=== PATIENT | female | born 1950 | race Caucasian/White ===

== ENCOUNTER 2019-05-03 00:33 | Emergency (ER) | payer MEDICARE, MEDICAID ==
[~2019-05-03] VITALS: Ht 160 cm; Wt 68.0 kg
--- NOTE | 2019-05-03 00:52 | ED Fall/Injury ---
General Stated Complaint: FALL Source: patient (PT WITH DEMENTIA AND IS UNABLE TO GIVE RELIABLE INFORMATION), family ( AND SON ARRIVE LATER--BOTH ARE VERY POOR HISTORIANS WELL. ), EMS, caregiver History of Present Illness Date Seen by Provider: May 03, 2019 Time Seen by Provider: 00:33 Initial Comments PT AR[facility]IVES VIA [facility], WITH CERVICAL COLLAR IN PLACE PT HAD UNWITNESSED FALL AT THE FACILITY, BUT THE FALL WAS REPORTEDLY HEARD BY STAFF MEMBER. PT HAS HEMATOMA TO LEFT FOREHEAD, AND PT'S ONLY COMPLAINT ON ARRIVAL TO ER IS PAIN TO THIS AREA PT IS AT NORMAL BASELINE, PER MIDDLE OR INTER[employer] S[employer] PRINCIPAL. PT HAS ONLY BEEN AT THEIR FACILITY SINCE 04/30/19, AND HAD BEEN AT HOME PRIOR TO THAT. PT WITH DEMENTIA PT IS ON 81 MG ASPIRIN DAILY EMS HAD REPORTED THAT PT'S ONLY COMPLAINT WAS KNEE PAIN, PT DOES NOT MENTION THAT HERE. PT THINKS SHE IS IN [place], [place], AND IS DISORIENTED TO TIME, PLACE AND SITUATION. ORIENTED TO SELF, AND IS ABLE TO GIVE HER BIRTHDATE PT IS INCONSISTENT ON ANSWERING YES/NO QUESTIONS ABOUT WHERE SHE HURTS, OR IF SHE HAS PAIN ON PALPATION TO VARIOUS AREAS OF BODY. PT IS COMPLETELY DISORIENTED TO SITUATION AT ONE POINT, PT DOES STATES THAT SHE THINKS SHE WAS GETTING UP TO GO TO THE BATHROOM, BUT PT CANNOT RELATE THAT SHE FELL. PCP: DR. JEFF Allergies and Home Medications Patient Home Medication List Home Medication List Reviewed: Yes Review of Systems Review of Systems Constitutional: other (PT IS NOT A RELIABLE HISTORIAN. ONLY C/O PAIN TO LEFT FOREHEAD AREA) Past [id number] Hx Past Medical History Surgeries: Yes (HAS MULTIPLE OLD CHEST AND ABDOMINAL SURGICAL SCARS-PT UNABLE TO STATE WHAT) Abdominal (SPLENECTOMY), Breast (BILATERAL BREAST LUMPECTOMIES), Neurological (T-SPNE RESCTION FOR TUMOR), Orthopedic (T-SPINE RESECTION FOR TUMOR) Cardiac: Yes Hypertension Neurological: Yes Dementia Gastrointestinal: Yes Chronic Constipation Musculoskeletal: Yes (CHRONIC RIGHT SHOULDER PAIN/ARTHRITIS; T-SPJNE RESECTION FOR TUMOR) Arthritis Cancer: Yes Breast, Lymphoma Did You Recieve Any Treatments: Yes (BREAST CANCER-S/P LUMPECTOMY-UNKNOWN IF SHE HAD CHEMO OR RADIATION; LYMPHOMA-S/P CHEMO + RADIATION + SURGERY) What Type of Treatment Did You: Chemotherapy, Radiation, Surgical Intervention Family Medical History ON REVIEW OF OLD RADIOLOGICAL STUDIES, STUDY INFORMATION INCLUDED: HX OF LYMPHOMA, [place] WITH CHEMO AND RADIATION HAD SEVERAL TUMORS REMOVED --IN CHEST--NEAR HEART, SPINAL CORD TUMOR--HAS HAD RESECTION OF MULTIPLE VERTEBRA OF T-SPINE HAS HAD SPLENECTOMY S/P BREAST LUMPECTOMY FOR CANCER PT HAS HISTORY OF BILATERAL LEG WEAKNESS Physical Exam Vital Signs Vital Signs - First Documented 05/03/19 05/03/19 00:33 03:05 Temp 36.7 Pulse 65 Resp 18 B/P (MAP) 166/99 (121) Pulse Ox 94 O2 Delivery Room Air Capillary Refill : Height, Weight, BMI Height: '" Weight: lbs. oz. kg; BMI Method: General Appearance: no apparent distress, cachetic, thin, other (CERVICAL COLLAR IN PLACE; TREMULOUS) HEENT: other (PUPILS PINPOINT AND EQUAL. EOMI. HAS MODERATE SIZED LEFT FOREHEAD HEMATOMA, WITH TENDERNESS TO PALPATION. NO BONY DEFORMITY. NO S UBCONJUNCTIVAL HEMORRHAGE OR EVIDENCE OF OCULAR INJURY.) Neck: other (IN CERVICAL COLLAR) Cardiovascular: normal peripheral pulses, regular rate, rhythm, no murmur, other (CHEST DEFORMITY C/W PECTUS CARINATUM) Respiratory: chest non-tender, normal breath sounds, no respiratory distress, no accessory muscle use, other (PECTUS CARINATUM) Peripheral Pulses: 1+ Dorsalis Pedis (R), 1+ Left Dors-Pedis (L), 1+ Radial Pulses (R), 1+ Radial Pulses (L) Gastrointestinal: non tender, soft Back: no CVA tenderness Extremities: normal capillary refill, other (TENDERNESS TO LEFT UPPER ARM. NO EXTERNAL EVIDENCE OF TRAUMA. HAS SLIGHT ABRASION TO LEFT KNEE. BUT NO APPARENT TENDERNESS. HAS FULL ROM OF KNEES. ) Neurologic/Psychiatric: personal vehicle advisor II-XII nml as tested, no motor/sensory deficits (GROSS MOTOR/SENSORY INTACT, BUT PT HAS DIFFICULTY FOLLOWING SIMPLE COMMANDS, SPEECH IS CLEAR. ), alert Skin: normal color, warm/dry, other ( ABOVE) Progress/Results/Core Measures Results/Orders My Orders Orders - CHUCKY CANO DO Ct Head/Face/Cervical Wo (05/03/19 00:45) Chest 1 View, Ap/Pa Only (05/03/19 00:45) Humerus, Left, 2 Views (05/03/19 00:45) Pelvis (05/03/19 00:45) Knee, 3 Views, Bilateral (05/03/19 00:45) Vital Signs/I&O 05/03/19 05/03/19 00:33 03:05 Temp 36.7 36.8 Pulse 65 61 Resp 18 18 B/P (MAP) 166/99 (121) 119/74 Pulse Ox 94 O2 Delivery Room Air Room Air Progress Progress Note : Progress Note DETERIORATION IN PT'S CONDITION DURING ER STAY. PT IS AT NORMAL BASELINE WITH MENTATION Diagnostic Imaging Comments CT HEAD/MAXILLOFACIALS/CERVICAL SPINE--NO ACUTE PROCESS, CHRONIC SMALL VESSEL ISCHEMIC CHANGES, POST SURGICAL CHANGES OF VISUALIZED T2-T5 SPINE--REMAINDER OF T-SPINE IS NOT VISUALIZED. DEGENERATIVE CHANGES OF CERVICAL SPINE. PER [facility] VIA [facility] AT 0236 CXR--NO ACUTE PROCESS, PENDING RADIOLOGIST REVIEW PELVIS XRAY--NO ACUTE PROCESS, PENDING RADIOLOGIST REVIEW BILATERAL KNEE XRAYS--NO ACUTE PROCESS, PENDING RADIOLOGIST REVIEW Reviewed: Reviewed by Me Departure Impression Primary Impression: Unwitnessed fall Additional Impressions: Forehead contusion Minor head injury without loss of consciousness CERVICAL SPINE STRAIN Knee contusion Contusion of left upper arm Dementia Chronic neck and back pain Disposition: 03 XFER SNF Condition: Stable Departure-Patient Inst. Referrals: CECILIA JEFF MD (PCP/Family) Primary Care Physician Patient Instructions: Minor Head Injury (DC), Black Eye, Chronic Neck Pain (DC), Contusion (DC) Add. Discharge Instructions: ICE TO SORE AREAS AT 20 MINUTE INTERVALS TYLENOL NEEDED FOR PAIN CONTINUE YOUR REGULAR MEDICATIONS PRESCRIBED FOLLOW UP WITH DR. JEFF IF SYMPTOMS NOT IMPROVED, RETURN TO ER IF SYMPTOMS WORSEN CHUCKY CANO DO May 03, 2019 00:52
--- NOTE | 2019-05-03 02:38 | NUR ---
c-collar removed by dr mckoy.
[2019-05-03 03:05] VITALS: BP 119/74
--- NOTE | 2019-05-03 06:26 | Diagnostic Imaging Report ---
INDICATION: Pain and soreness. FINDINGS: The heart size is normal. There is mild venous congestion. There is no pleural effusion or pneumothorax. There has been a previous median sternotomy and coronary artery bypass graft. IMPRESSION: Mild central pulmonary venous congestion, otherwise unremarkable. Dictated by: Dictated on workstation # [id number]
--- NOTE | 2019-05-03 06:39 | Diagnostic Imaging Report ---
INDICATION: Fall. Two views were obtained. FINDINGS: There are degenerative changes in the shoulder. There is no fracture or dislocation. Soft tissues are unremarkable. IMPRESSION: Degenerative changes, otherwise unremarkable. Dictated by: Dictated on workstation # [id number]
--- NOTE | 2019-05-03 06:41 | Diagnostic Imaging Report ---
INDICATION: Fall. FINDINGS: The bony pelvis is intact. Both proximal femurs are intact. There is no fracture or dislocation. Soft tissues are unremarkable. IMPRESSION: No acute fracture or dislocation Dictated by: Dictated on workstation # [id number]
--- NOTE | 2019-05-03 06:47 | Diagnostic Imaging Report ---
INDICATION: Pain and swelling. Six views were obtained. FINDINGS: There are mild degenerative changes in the knees bilaterally. There is no fracture or dislocation. Soft tissues are unremarkable. IMPRESSION: Mild degenerative changes bilaterally, however, no acute fracture or dislocation. Dictated by: Dictated on workstation # [id number]
--- NOTE | 2019-05-03 07:41 | Diagnostic Imaging Report ---
PROCEDURE: CT head, face, and cervical spine without contrast. TECHNIQUE: Multiple contiguous axial images were obtained through the head, neck, and facial bones without the use of intravenous contrast. Sagittal and coronal reformations through the cervical spine and facial bones were also performed. Auto Exposure Controls were utilized during the CT exam to meet ALARA standards for radiation dose reduction. INDICATION: Pain after fall. FINDINGS: There is prominence of the ventricles and sulci. There is some chronic microvascular ischemic disease. There is no hydrocephalus. There is no midline shift. There is no mass, hemorrhage or extra-axial fluid collection. Calvarium is intact. Sinuses and mastoid air cells are clear. The zygomatic arches are intact. The nasal bones are intact. Mandibular alignment is normal. There are no displaced facial fractures. The alignment of the cervical spine is grossly normal. The vertebral body heights are well-maintained. There is no fracture or traumatic subluxation. The odontoid is intact and the lateral masses are well aligned. The prevertebral soft tissues are within normal limits. The lung apices are clear. IMPRESSION: No acute intracranial abnormality. No evidence of facial fracture. Unremarkable CT cervical spine apart from mild degenerative change. Dictated by: Dictated on workstation # [id number]
== END 2019-05-03 03:12 | disposition home or self-care (01) ==
LOC: ER 00:36
DX: S09.90XA Unspecified injury of head, initial encounter (principal); S00.83XA Contusion of other part of head, initial encounter; S16.1XXA Strain of muscle, fascia and tendon at neck level, initial encounter; S80.02XA Contusion of left knee, initial encounter; S40.022A Contusion of left upper arm, initial encounter; I10 Essential (primary) hypertension; F03.90 Unspecified dementia, unspecified severity, without behavioral disturbance, psychotic disturbance, mood disturbance, and anxiety; G89.29 Other chronic pain; M54.9 Dorsalgia, unspecified; Z85.3 Personal history of malignant neoplasm of breast; Z90.81 Acquired absence of spleen; Z85.72 Personal history of non-Hodgkin lymphomas; W19.XXXA Unspecified fall, initial encounter
CPT/HCPCS: 70450; 70486; 71045; 72125; 72170; 73060

== ENCOUNTER 2019-12-03 22:43 | Emergency (ER) | payer MEDICARE, MEDICAID ==
[~2019-12-03] VITALS: Ht 160 cm; Wt 58.0 kg
--- OUTSIDE RECORDS SUMMARY | 2019-12-03 22:49 | XMS REPORT | Continuity of Care Document ---
Author Organization Unknown Address Unknown Phone Unavailable Allergies Active Description Code Type Severity Reaction Onset Reported/Identified Relationship to Patient Clinical Status Yes BACTRIM 973160 N/A N/A Yes PENICILLIN G 7980 N/A N/A Yes TRAZODONE 13441 N/A N/A Yes CODEINE 14926 DRUG INGREDI N/A N/A Yes MEPERIDINE 55455 DRUG INGREDI N/A N/A Yes MEPERIDINE HCL 62999 DRUG INGREDI N/A N/A Yes MORPHINE 77115 DRUG INGREDI N/A N/A Yes PENICILLIN G 53653 DRUG INGREDI N/A N/A Yes TRAMADOL HCL 35229 DRUG INGREDI N/A N/A Yes Avinza (morphine) Avinza (morphine) N/A N/A Yes codeine phosphate codeine phosphate N/A N/A Yes Demerol (meperidine) Demerol (meperidi ne) N/A N/A Yes IV steroids IV steroids N/A N/A Yes Ryzolt (tramadol) Ryzolt (tramadol) N/A N/A Yes codeine codeine Allergy Unknown N/A 09/21/2008 Yes hydrocodone hydrocodone Allergy Unknown N/A 09/21/2008 Yes Opioids-Meperidine and Related Opioids-Meperidine and Related Allergy Unknown N/A 09/21/2008 Yes Penicillins Penicillins Allergy Unknown N/A 09/21/2008 Yes CODEINE 2670 N/A N/A 01/05/2014 Yes MEPERIDINE HCL N/A N/A 01/05/2014 Yes MORPHINE N/A N/A 01/05/2014 Yes PRESERVATIVE FREE N/A N/A 01/05/2014 Yes TRAMADOL HCL N/A N/A 01/05/2014 Yes meperidine meperidine AdvReac Severe N/A 06/20/2014 Yes morphine morphine AdvReac Severe N/A 06/20/2014 Yes SULFAMETHOXAZOLE-TRIMETHOPRIM 81149 DRUG INGREDI Low Rash 01/27/2016 6 Yes TRAZODONE 68241 DRUG INGREDI N/A Other 07/03/2017 07/03/2017 Medications Medication Packaging Start Date St op Date Route Dosage Sig Tylenol Extra Strength (acetaminophen) 11/05/2012 as needed for pain omeprazole 11/05 once a d ay Miralax (polyethylene glycol 3350) 11/05/2012 twice a day Benefiber (guar gum) (guar gum) 11/05/2012 aspirin 11/06/19 13 once a d ay hydrochlorothiazide 11/05/2012 once a day [place] [facility] Breakfast (nutritional supplements) 11/05/2012 Singulair (montelukast) 11/05/2012 once a day diltiazem HCl (diltiazem hcl) 04/02/2013 1 tablet by mouth gabapentin 07/11 1 capsul e by mouth three times a day 1 diltiazem HCl (diltiazem hcl) 07/12/2015 1 capsule by mouth once a day [address] TAB 05/30/2016 06/20/2015 1 BID Tramadol* MG 201606/20/2015 50 Q4H PRN Acetaminophen 500 MG MG 05/30/2016 05/30/2016 1000 BEDTIME Salmeterol 50 Mcg 05/30/2016 05/30/2016 Omeprazole MG 05/3005/30/2016 20 DAILY@0 600 Montelukast Sodium 05/30/2016 05/30/2016 Losartan 201605/30/2016 Gabapentin 05/3005/30/2016 FUROSEMIDE 05/3005/30/2016 Diltiazem HCl ER MG 05/30/2016 05/30/2016 180 DAILY Cyclobenzaprine TAB 05/30/2016 06/20/2015 1 Q8H PRN Budesonide 05/3005/30/2016 Aspirin MG 05/30/19 17 05/30/2016 81 DAILY Amlodipine Besylate 05/30/2016 05/30/[address] TAB 06/27/2016 06/20/2015 1 BID Tramadol* MG 201606/20/2015 50 Q4H PRN Acetaminophen 500 MG MG 06/27/2016 06/27/2016 1000 BEDTIME Salmeterol 50 Mcg 06/27/2016 06/27/2016 Omeprazole MG 06/2706/27/2016 20 DAILY@0 600 Montelukast Sodium 06/27/2016 06/27/2016 Losartan 201606/27/2016 Gabapentin 06/2706/27/2016 FUROSEMIDE 06/2706/27/2016 Diltiazem HCl ER MG 06/27/2016 06/27/2016 180 DAILY Cyclobenzaprine TAB 06/27/2016 06/20/2015 1 Q8H PRN Budesonide 06/2706/27/2016 Aspirin MG 06/28/19 17 06/27/2016 81 DAILY Amlodipine Besylate 06/27/2016 06/27/[address] TAB 03/28/2017 06/20/2015 1 BID Tramadol* MG 201606/20/2015 50 Q4H PRN Acetaminophen 500 MG MG 03/28/2017 03/28/2017 1000 BEDTIME Salmeterol 50 Mcg 03/28/2017 03/28/2017 Omeprazole MG 03/2803/28/2017 20 DAILY@0 600 Montelukast Sodium 03/28/2017 03/28/2017 Losartan 201603/28/2017 Gabapentin 03/2803/28/2017 FUROSEMIDE 03/2803/28/2017 Diltiazem HCl ER MG 03/28/2017 03/28/2017 180 DAILY Cyclobenzaprine TAB 03/28/2017 06/20/2015 1 Q8H PRN Budesonide 03/2803/28/2017 Aspirin MG 03/28/20 17 03/28/2017 81 DAILY Amlodipine Besylate 03/28/2017 03/28/2017 Problems Date Dx Coded Attending Type Code Diagnosis Diagnosed By 10/14/2015 ICD10 M19.011 Primary osteoarthritis, right shoulder 01/23/2016 Beverly Diaz Z12.31 Encounter for screening mammogram for malignant neoplasm of breast Beverly Diaz 05/31/2016 Alec Hull DO G89.29 Other chronic pain Alec Hull DO 05/31/2016 Alec Hull DO M5 4.9 Dorsalgia, unspecified Alec Hull DO 05/31/2016 Alec Hull DO M79.605 Pain in left leg Longwell DO, Alec K 06/29/2016 Longwell , Alec Lehman F G89.29 Other chronic pain Longwell DO, Alec K 06/29/2016 Longwell DO, Alec K F M5 4.9 Dorsalgia, unspecified Longwell DO, Alec K 06/29/2016 Longwell DO, Alec K F M79.605 Pain in left leg Longwell DO, Alec K 06/29/2016 ICD10 M19.011 Primary osteoarthritis, right shoulder 07/18/2016 V R50.9 Feve r, unspecified 08/20/2016 V R50.9 Feve r, unspecified 03/31/2017 Gilles WOODWARD, Allie J F F03.90 Unspecified dementia without behavioral disturbance Gilles WOODWARD, Allie J 03/31/2017 Gilles WOODWARD, Allie J F I10 Essential (primary) hypertension Gilles WOODWARD, Allie J 03/31/2017 Gilles WOODWARD, Allie J F J44.9 Chronic obstructive pulmonary disease, unspecified Gilles WOODWARD, Allie J 03/31/2017 Gilles WOODWARD, Allie J F R06.02 Shortness of breath Gilles WOODWARD, Allie J 03/31/2017 Gilles WOODWARD, Allie J F Z79.82 halfway (current) use of aspirin Gilles WOODWARD, Allie J 03/31/2017 Gilles WOODWARD, Allie J F 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 Gilles WOODWARD, Allie J 04/27/2017 Subhash WOODWARD, Cy K F R06.0 2 Shortness of breath Subhash WOODWARD, Cy K 04/27/2017 Subhash WOODWARD, Cy K F R07.2 Precordial pain Subhash WOODWARD, Cy K 08/14/2017 Robina Cody M25.51 1 Pain in right shoulder 08/14/2017 Robina Cody M19.01 1 Primary osteoarthritis, right shoulder 07/21/2018 SUBHASH, CY K V [id number] 10 Edema 07/21/2018 SUBHASH, CY K V M21.611 Bunion of right foot 07/21/2018 SUBHASH, CY K V M21.612 Bunion of left foot 07/21/2018 SUBHASH, CY K V F03.90 Unspecified dementia without behavioral disturbance 07/21/2018 SUBHASH CY K V I10 Essential (primary) hypertension 05/03/2019 RACHAEL DO, CHUCKY K Ot F03.90 UNSPECIFIED DEMENTIA WITHOUT BEHAVIORAL 05/03/2019 RACHAEL DO, CHUCKY K Ot G89.29 OTHER CHRONIC PAIN 05/03/2019 RACHAEL DO, CHUCKY K Ot I10 ESSENTIAL (PRIMARY) HYPERTENSION 05/03/2019 RACHAEL DO, CHUCKY K Ot M54.9 DORSALGIA, UNSPECIFIED 05/03/2019 RACHAEL DO, CHUCKY K Ot S00.83X A CONTUSION OF OTHER PART OF HEAD, INITIAL 05/03/2019 RACHAEL DO, CHUCKY K Ot S09.90X A UNSPECIFIED INJURY OF HEAD, INITIAL ENCO 05/03/2019 RACHAEL DO, CHUCKY K Ot S16.1XX A STRAIN OF MUSCLE, FASCIA AND TENDON AT N 05/03/2019 RACHAEL DO, CHUCKY K Ot S40.022 A CONTUSION OF LEFT UPPER ARM, INITIAL ENC 05/03/2019 RACHAEL DO, CHUCKY K Ot S80.02X A CONTUSION OF LEFT KNEE, INITIAL ENCOUNTE 05/03/2019 RACHAEL DO, CHUCKY K Ot W19.XXX A UNSPECIFIED FALL, INITIAL ENCOUNTER 05/03/2019 RACHAEL DO, CHUCKY K Ot Z85.3 PERSONAL HISTORY OF MALIGNANT NEOPLASM O 05/03/2019 RACHAEL DO, CHUCKY K Ot Z85.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 05/03/2019 RACHAEL DO, CHUCKY K Ot 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 05/08/2019 RACHAEL DO, CHUCKY K Ot F03.90 UNSPECIFIED DEMENTIA WITHOUT BEHAVIORAL 05/08/2019 RACHAEL DO, CHUCKY K Ot G89.29 OTHER CHRONIC PAIN 05/08/2019 RACHAEL DO, CHUCKY K Ot I10 ESSENTIAL (PRIMARY) HYPERTENSION 05/08/2019 RACHAEL DO, CHUCKY K Ot M54.9 DORSALGIA, UNSPECIFIED 05/08/2019 RACHAEL DO, CHUCKY K Ot S00.83X A CONTUSION OF OTHER PART OF HEAD, INITIAL 05/08/2019 RACHAEL DO, CHUCKY K Ot S09.90X A UNSPECIFIED INJURY OF HEAD, INITIAL ENCO 05/08/2019 RACHAEL DO, CHUCKY K Ot S16.1XX A STRAIN OF MUSCLE, FASCIA AND TENDON AT N 05/08/2019 RACHAEL DO, CHUCKY K Ot S40.022 A CONTUSION OF LEFT UPPER ARM, INITIAL ENC 05/08/2019 CHUCKY CANO DO Ot S80.02X A CONTUSION OF LEFT KNEE, INITIAL ENCOUNTE 05/08/2019 CHUCKY CANO DO Ot W19.XXX A UNSPECIFIED FALL, INITIAL ENCOUNTER 05/08/2019 CHUCKY CANO DO Ot Z85.3 PERSONAL HISTORY OF MALIGNANT NEOPLASM O 05/08/2019 CHUCKY CANO DO Ot Z85.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 05/08/2019 CHUCKY CANO DO Ot 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 Procedures Code Description Performed By Per formed On ARTH ROCENTESIS ASPIR&/INJECTION MAJOR JT/BURSA J3301 SUNITHA LOG - PER 05/02 CC 07/12/[address] OF SERVICE 01/16/2016 [id number] CB C WITH AUTO DIFFERENTIAL 2016 [id number] SCAN 2016 TJU983 CBC AND DIFFERENTIAL 2016 LAB17 COMP REHENSIVE METABOLIC PANEL 2016 LAB18 LIPI D PANEL 2016 [id number] TS H (REFLEX FREE T4 IF ABNORMAL) 2016 OGJ2127 LI PID PANEL-EMPORIA 2016 IIF1821 UR INE MICROSCOPIC 2016 KMP385 PER FORM URINE SCREEN, AUTOMATED 2016 OYS581 URI NE CULTURE 2016 ARTH ROCENTESIS ASPIR&/INJECTION MAJOR JT/BURSA J3301 SUNITHA LOG - PER 4 CC 02/03/2016 LAB17 COMP REHENSIVE METABOLIC PANEL 05/18/2016 [id number] CB C WITH AUTO DIFFERENTIAL 05/18/2016 USA818 CBC AND DIFFERENTIAL 05/18/2016 LAB17 COMP REHENSIVE METABOLIC PANEL 10/11/2016 [id number] LI PID PANEL-EMPORIA 10/11/2016 [id number] UR INE MICROSCOPIC 12/03/2016 BYE910 PER FORM URINE SCREEN, AUTOMATED 12/03/2016 LAB17 COMP REHENSIVE METABOLIC PANEL 02/18/2017 [id number] CB C WITH AUTO DIFFERENTIAL 02/18/2017 FJD0103 TS H (REFLEX FREE T4 IF ABNORMAL) 02/18/2017 [id number] LI PID PANEL-EMPORIA 02/18/2017 EID743 CBC AND DIFFERENTIAL 02/18/2017 PWV411 D-D ELIZABETH, QUANTITATIVE 03/28/2017 38851 X-RA Y EXAM OF SHOULDER 08/14/2017 15542 OFFI CE/OUTPATIENT VISIT, NEW 08/14/2017 GWZ253 TRI VALENT INF VAC ADJUVANTED, PF (TEDDY) 01/19/2019 [id number] DURABLE MEDICAL SUPPLIES 04/20/2019 Results Test Result Range LISA PREP - 10/06/15 09:55 [id number] Yeast LISA PREP - 10/06/15 09:55 [id number] Yeast HEPATITIS C ANTIBODY - 10/06/15 10:14 HEP C IGG INTERP. Non-reactive Non-reac tive HEPATITIS C ANTIBODY - 10/06/15 10:14 HEP C IGG INTERP. Non-reactive Non-reac tive URINE MICROSCOPIC - 10/07/15 10:42 AMORPHOUS 1+ BACTERIA Trace RBC UA 0-3 0-3 SQUAMOUS EPITHELIAL 1+ 1+ WBC UA 0-3 0-3 URINE CULTURE - 10/07/15 10:42 [id number] [place] Count>53887 <713246 c fu/mL of at least 2 organisms suggestive of contamination URINE MICROSCOPIC - 10/07/15 10:42 AMORPHOUS 1+ BACTERIA Trace RBC UA 0-3 0-3 SQUAMOUS EPITHELIAL 1+ 1+ WBC UA 0-3 0-3 URINE CULTURE - 10/07/15 10:42 [id number] [place] Count>55815 <706174 c fu/mL of at least 2 organisms suggestive of contamination SCAN - 01/24/16 08:09 [id number] Results confirmed by microscopic exam LIPID PANEL-[place] - 01/24/16 08:09 CHOLESTEROL 298 mg/dL <=200 CHOLESTEROL/HDL RATIO 3.9 <=4.4 HDL CHOLESTEROL 76 mg/dL 40-90 TRIGLYCERIDE 75 mg/dL 0-018 [id number] 207 mg/dL TSH (REFLEX FREE T4 IF ABNORMAL) - 01/23 08:09 TSH 3.135 uIU/mL 0.400-4.000 SCAN - 01/24/16 08:09 [id number] Results confirmed by microscopic exam LIPID PANEL-[place] - 01/24/16 08:09 CHOLESTEROL 298 mg/dL <=200 CHOLESTEROL/HDL RATIO 3.9 <=4.4 HDL CHOLESTEROL 76 mg/dL 40-90 TRIGLYCERIDE 75 mg/dL 0-732 [id number] 207 mg/dL TSH (REFLEX FREE T4 IF ABNORMAL) - 01/23 08:09 TSH 3.135 uIU/mL 0.400-4.000 URINE MICROSCOPIC - 01/24/16 13:37 AMORPHOUS 1+ BACTERIA Trace RBC UA 0-3 0-3 SQUAMOUS EPITHELIAL 1+ 1+ WBC UA 4-10 0-3 URINE MICROSCOPIC - 01/24/16 13:37 AMORPHOUS 1+ BACTERIA Trace RBC UA 0-3 0-3 SQUAMOUS EPITHELIAL 1+ 1+ WBC UA 4-10 0-3 URINE CULTURE - 01/24/16 13:43 [id number] <10,000 CFU/mL URINE CULTURE - 01/24/16 13:43 [id number] <10,000 CFU/mL CBC WITH AUTO DIFFERENTIAL - 05/18/16 10 :17 BASOPHILS RELATIVE PERCENT 1.0 % 0.0 -2.5 EOSINOPHILS RELATIVE PERCENT 7.2 % < =5.0 HEMATOCRIT 37.4 % 34.9-44.5 HEMOGLOBIN 12.3 g/dL 12.0-15.5 LYMPHOCYTES RELATIVE PERCENT 31.5 % 2 2.0-49.0 MEAN CORPUSCULAR HEMOGLOBIN 29.3 pg 26 .0-34.0 MEAN CORPUSCULAR HEMOGLOBIN CONC 32.7 g/dL 31.0-37.0 MEAN CORPUSCULAR VOLUME 89.4 fL 81.6-9 8.3 MONOCYTES RELATIVE PERCENT 10.4 % 2.0 -9.0 NEUTROPHILS RELATIVE PERCENT 49.9 % 4 0.0-75.0 PLATELET COUNT 318 10E9/L 150-450 RED BLOOD CELL COUNT 4.19 10E12/L 3.90-5 .03 RED CELL DISTRIBUTION WIDTH 13.6 % 11 .9-15.5 1553930 4.3 10E9/L 3.5-10.5 2276787 1.40 10E9/L 0.90-2.90 0227009 0.40 10E9/L 0.30-0.90 3270193 0.30 10E9/L 0.05-0.50 4892493 2.20 10E9/L 1.70-7.00 2934466 0.00 10E9/L 0.00-0.30 COMPREHENSIVE METABOLIC PANEL - 05/18/16 10:17 ALBUMIN 3.7 g/dL 3.5-5.0 ALKALINE PHOSPHATASE 102 U/L 46-116 ALT 76 U/L 9-52 AST 58 U/L 14-36 BILIRUBIN,TOTAL 0.3 mg/dL 0.2-1.3 BUN BLOOD 9 mg/dL 7-17 CALCIUM 8.6 mg/dL 8.4-10.2 CHLORIDE 105 mmol/L 99-108 CO2 32 mmol/L 22-30 CREATININE 0.49 mg/dL 0.70-1.20 EGFR > mL/min >59 GLUCOSE 95 mg/dL 64-110 POTASSIUM 3.8 mmol/L 3.6-5.0 PROTEIN TOTAL 6.6 g/dL 6.0-8.0 SODIUM 145 mmol/L 135-145 CBC WITH AUTO DIFFERENTIAL - 05/18/16 10 :17 BASOPHILS RELATIVE PERCENT 1.0 % 0.0 -2.5 EOSINOPHILS RELATIVE PERCENT 7.2 % < =5.0 HEMATOCRIT 37.4 % 34.9-44.5 HEMOGLOBIN 12.3 g/dL 12.0-15.5 LYMPHOCYTES RELATIVE PERCENT 31.5 % 2 2.0-49.0 MEAN CORPUSCULAR HEMOGLOBIN 29.3 pg 26 .0-34.0 MEAN CORPUSCULAR HEMOGLOBIN CONC 32.7 g/dL 31.0-37.0 MEAN CORPUSCULAR VOLUME 89.4 fL 81.6-9 8.3 MONOCYTES RELATIVE PERCENT 10.4 % 2.0 -9.0 NEUTROPHILS RELATIVE PERCENT 49.9 % 4 0.0-75.0 PLATELET COUNT 318 10E9/L 150-450 RED BLOOD CELL COUNT 4.19 10E12/L 3.90-5 .03 RED CELL DISTRIBUTION WIDTH 13.6 % 11 .9-15.5 [id number] 4.3 10E9/L 3.5-10.5 0356914 1.40 10E9/L 0.90-2.90 8954124 0.40 10E9/L 0.30-0.90 8457803 0.30 10E9/L 0.05-0.50 4672300 2.20 10E9/L 1.70-7.00 7188338 0.00 10E9/L 0.00-0.30 COMPREHENSIVE METABOLIC PANEL - 05/18/16 10:17 ALBUMIN 3.7 g/dL 3.5-5.0 ALKALINE PHOSPHATASE 102 U/L 46-116 ALT 76 U/L 9-52 AST 58 U/L 14-36 BILIRUBIN,TOTAL 0.3 mg/dL 0.2-1.3 BUN BLOOD 9 mg/dL 7-17 CALCIUM 8.6 mg/dL 8.4-10.2 CHLORIDE 105 mmol/L 99-108 CO2 32 mmol/L 22-30 CREATININE 0.49 mg/dL 0.70-1.20 EGFR > mL/min >59 GLUCOSE 95 mg/dL 64-110 POTASSIUM 3.8 mmol/L 3.6-5.0 PROTEIN TOTAL 6.6 g/dL 6.0-8.0 SODIUM 145 mmol/L 135-145 COMPREHENSIVE METABOLIC PANEL - 10/11/16 10:13 ALBUMIN 3.7 g/dL 3.5-5.0 ALKALINE PHOSPHATASE 81 U/L 46-116 ALT 35 U/L 9-52 ANION GAP 5 AST 22 U/L 14-36 BILIRUBIN,TOTAL 0.3 mg/dL 0.2-1.3 BUN BLOOD 14 mg/dL 7-17 CALCIUM 9.2 mg/dL 8.4-10.2 CHLORIDE 104 mmol/L 99-108 CO2 33 mmol/L 22-30 CREATININE 0.62 mg/dL 0.70-1.20 EGFR > mL/min >59 GLUCOSE 64 mg/dL 64-110 POTASSIUM 4.0 mmol/L 3.6-5.0 PROTEIN TOTAL 6.6 g/dL 6.0-8.0 SODIUM 142 mmol/L 135-145 [facility] 10:13 CHOLESTEROL 187 mg/dL <=200 CHOLESTEROL/HDL RATIO 2.4 <=4.4 HDL CHOLESTEROL 79 mg/dL 40-90 TRIGLYCERIDE 66 mg/dL 0-785 0141867 95 mg/dL COMPREHENSIVE METABOLIC PANEL - 10/11/16 10:13 ALBUMIN 3.7 g/dL 3.5-5.0 ALKALINE PHOSPHATASE 81 U/L 46-116 ALT 35 U/L 9-52 ANION GAP 5 AST 22 U/L 14-36 BILIRUBIN,TOTAL 0.3 mg/dL 0.2-1.3 BUN BLOOD 14 mg/dL 7-17 CALCIUM 9.2 mg/dL 8.4-10.2 CHLORIDE 104 mmol/L 99-108 CO2 33 mmol/L 22-30 CREATININE 0.62 mg/dL 0.70-1.20 EGFR > mL/min >59 GLUCOSE 64 mg/dL 64-110 POTASSIUM 4.0 mmol/L 3.6-5.0 PROTEIN TOTAL 6.6 g/dL 6.0-8.0 SODIUM 142 mmol/L 135-145 LIPID PANEL-[place] - 10/11/16 10:13 CHOLESTEROL 187 mg/dL <=200 CHOLESTEROL/HDL RATIO 2.4 <=4.4 HDL CHOLESTEROL 79 mg/dL 40-90 TRIGLYCERIDE 66 mg/dL 0-541 7843739 95 mg/dL URINE MICROSCOPIC - 12/03/16 11:52 MUCOUS Trace SQUAMOUS EPITHELIAL Rare WBC UA 0-3 0-3 URINE MICROSCOPIC - 12/03/16 11:52 MUCOUS Trace SQUAMOUS EPITHELIAL Rare WBC UA 0-3 0-3 PERFORM URINE SCREEN, AUTOMATED - 12:07 APPERANCE Clear BILIRUBIN Negative Negative COLOR Yellow GLUCOSE Negative Negative HEMOGLOBIN Negative Negative KETONES Negative Negative LEUKOESTERASE Negative Negative NITRATE Negative Negative PH-URINE 5.5 5.0-8.0 PROTEIN Negative Negative SPECIFIC GRAVITY 1.010 1.003-1.030 2239 0.2 EU <=0.2 PERFORM URINE SCREEN, AUTOMATED - 12:07 [place]PER[place] Clear BILIRUBIN Negative Negative COLOR Yellow GLUCOSE Negative Negative HEMOGLOBIN Negative Negative KETONES Negative Negative LEUKOESTERASE Negative Negative NITRATE Negative Negative PH-URINE 5.5 5.0-8.0 PROTEIN Negative Negative SPECIFIC GRAVITY 1.010 1.003-1.030 2239 0.2 EU <=0.2 CBC WITH AUTO DIFFERENTIAL - 02/18/17 15 :14 BASOPHILS RELATIVE PERCENT 1.5 % 0.0 -2.5 EOSINOPHILS RELATIVE PERCENT 13.8 % < =5.0 HEMATOCRIT 41.1 % 34.9-44.5 HEMOGLOBIN 13.4 g/dL 12.0-15.5 LYMPHOCYTES RELATIVE PERCENT 23.9 % 2 2.0-49.0 MEAN CORPUSCULAR HEMOGLOBIN 29.1 pg 26 .0-34.0 MEAN CORPUSCULAR HEMOGLOBIN CONC 32.6 g/dL 31.0-37.0 MEAN CORPUSCULAR VOLUME 89.2 fL 81.6-9 8.3 MONOCYTES RELATIVE PERCENT 11.0 % 2.0 -9.0 NEUTROPHILS RELATIVE PERCENT 49.8 % 4 0.0-75.0 PLATELET COUNT 412 10E9/L 150-450 RED BLOOD CELL COUNT 4.61 10E12/L 3.90-5 .03 RED CELL DISTRIBUTION WIDTH 13.4 % 11 .9-15.5 6801944 7.6 10E9/L 3.5-10.5 5247384 1.80 10E9/L 0.90-2.90 5024894 0.80 10E9/L 0.30-0.90 2171621 1.00 10E9/L 0.05-0.50 5433557 3.90 10E9/L 1.70-7.00 2655583 0.10 10E9/L 0.00-0.30 [facility]:14 CHOLESTEROL 190 mg/dL <=200 CHOLESTEROL/HDL RATIO 2.5 <=4.4 HDL CHOLESTEROL 75 mg/dL 40-90 TRIGLYCERIDE 106 mg/dL 0-822 6156729 94 mg/dL COMPREHENSIVE METABOLIC PANEL - 02/18/17 15:14 ALBUMIN 3.9 g/dL 3.5-5.0 ALKALINE PHOSPHATASE 84 U/L 46-116 ALT 41 U/L 9-52 ANION GAP 7 AST 25 U/L 14-36 BILIRUBIN,TOTAL < mg/dL 0.2-1.3 BUN BLOOD 18 mg/dL 7-17 CALCIUM 9.3 mg/dL 8.4-10.2 CHLORIDE 101 mmol/L 99-108 CO2 33 mmol/L 22-30 CREATININE 0.61 mg/dL 0.70-1.20 EGFR > mL/min >59 GLUCOSE 99 mg/dL 64-110 POTASSIUM 4.1 mmol/L 3.6-5.0 PROTEIN TOTAL 7.3 g/dL 6.0-8.0 SODIUM 141 mmol/L 135-145 TSH (REFLEX FREE T4 IF ABNORMAL) - 02/18 15:14 TSH 2.263 uIU/mL 0.400-4.000 CBC WITH AUTO DIFFERENTIAL - 02/18/17 15 :14 BASOPHILS RELATIVE PERCENT 1.5 % 0.0 -2.5 EOSINOPHILS RELATIVE PERCENT 13.8 % < =5.0 HEMATOCRIT 41.1 % 34.9-44.5 HEMOGLOBIN 13.4 g/dL 12.0-15.5 LYMPHOCYTES RELATIVE PERCENT 23.9 % 2 2.0-49.0 MEAN CORPUSCULAR HEMOGLOBIN 29.1 pg 26 .0-34.0 MEAN CORPUSCULAR HEMOGLOBIN CONC 32.6 g/dL 31.0-37.0 MEAN CORPUSCULAR VOLUME 89.2 fL 81.6-9 8.3 MONOCYTES RELATIVE PERCENT 11.0 % 2.0 -9.0 NEUTROPHILS RELATIVE PERCENT 49.8 % 4 0.0-75.0 PLATELET COUNT 412 10E9/L 150-450 RED BLOOD CELL COUNT 4.61 10E12/L 3.90-5 .03 RED CELL DISTRIBUTION WIDTH 13.4 % 11 .9-15.5 6050460 7.6 10E9/L 3.5-10.5 5990818 1.80 10E9/L 0.90-2.90 4023868 0.80 10E9/L 0.30-0.90 6553538 1.00 10E9/L 0.05-0.50 8555595 3.90 10E9/L 1.70-7.00 8220967 0.10 10E9/L 0.00-0.30 [facility] 15:14 CHOLESTEROL 190 mg/dL <=200 CHOLESTEROL/HDL RATIO 2.5 <=4.4 HDL CHOLESTEROL 75 mg/dL 40-90 TRIGLYCERIDE 106 mg/dL 0-296 8981941 94 mg/dL COMPREHENSIVE METABOLIC PANEL - 02/18/17 15:14 ALBUMIN 3.9 g/dL 3.5-5.0 ALKALINE PHOSPHATASE 84 U/L 46-116 ALT 41 U/L 9-52 ANION GAP 7 AST 25 U/L 14-36 BILIRUBIN,TOTAL < mg/dL 0.2-1.3 BUN BLOOD 18 mg/dL 7-17 CALCIUM 9.3 mg/dL 8.4-10.2 CHLORIDE 101 mmol/L 99-108 CO2 33 mmol/L 22-30 CREATININE 0.61 mg/dL 0.70-1.20 EGFR > mL/min >59 GLUCOSE 99 mg/dL 64-110 POTASSIUM 4.1 mmol/L 3.6-5.0 PROTEIN TOTAL 7.3 g/dL 6.0-8.0 SODIUM 141 mmol/L 135-145 TSH (REFLEX FREE T4 IF ABNORMAL) - 02/18 15:14 TSH 2.263 uIU/mL 0.400-4.000 ARTERIAL BLOOD GAS PANEL - 03/27/17 18:0 4 pH 7.480 7.350-7.450 PCO2 47.0 mmHg 35.0-45.0 PO2 66.0 mmHg 80-100 BE +/- 10.1 mEq/L -2.0-2.0 BGTCO2 36.4 mEq/L 21-33 THB 12.2 gm/dL 12.0-16.0 %02HB 93 % 88-100 %COHB 2.500 % 0.0-1.5 %METHB 1.6 % 0.4-1.5 O2CT 16.0 Vol % 16.0-23.0 INSPIRED O2 21.0 % DRAW SITE R Radial NED'S TEST Positive Positive HCO3 35.0 mEq/L 22.0-26.0 ARTERIAL BLOOD GAS PANEL - 03/27/17 18:0 4 pH 7.480 7.350-7.450 PCO2 47.0 mmHg 35.0-45.0 PO2 66.0 mmHg 80-100 BE +/- 10.1 mEq/L -2.0-2.0 BGTCO2 36.4 mEq/L 21-33 THB 12.2 gm/dL 12.0-16.0 %02HB 93 % 88-100 %COHB 2.500 % 0.0-1.5 %METHB 1.6 % 0.4-1.5 O2CT 16.0 Vol % 16.0-23.0 INSPIRED O2 21.0 % DRAW SITE R Radial NED'S TEST Positive Positive HCO3 35.0 mEq/L 22.0-26.0 COMPLETE BLOOD COUNT W/DIFF - 03/27/17 1 8:05 HEMOGLOBIN 12.1 g/dl 12.0-16.0 PLATELET COUNT 304 10 3/uL 130-400 WHITE BLOOD CELL COUNT 8.3 10 3/uL 4.5-1 1.0 NEUTROPHIL% 48.7 % 43.0-72.0 LYMPHOCYTE% 27.9 % 15.0-45.0 MONOCYT% 11.6 % 1.0-12.0 EOSINOPHIL% 11.0 % 0.0-6.0 BASOPHIL% 0.8 % 0.0-2.0 NEUTROPHIL# 4.0 10 3/uL 1.0-8.0 LYMPHOCYTE# 2.3 10 3/uL 1.0-3.0 MONOCYTE# 1.0 10 3/uL 0.0-1.0 EOSINOPHIL# 0.9 10 3/uL 0.0-0.4 BASOPHIL# 0.1 10 3/uL 0.0-0.2 RED BLOOD CELL 4.08 10 6/uL 3.50-5.40 HEMATOCRIT 36.7 % 36-48 MEAN CORPUSCULAR VOLUME 89.8 fL 79-99 MEAN CORPUSCULAR HEMOGLOBIN 29.6 pg 25 .0-34.0 MEAN CELL HEMOGLOBIN CONC. 32.9 g/dL 31. 0-36.0 RED CELL DISTRIBUTION WIDTH 13.7 % 11 .0-15.0 MEAN PLATELET VOLUME 7.9 fL 7.0-11.0 CBC WITH MANUAL DIFFERENTIAL - 03/27/17 18:05 ABSOLUTE NEUTROPHIL COUNT 4.2 # 1.0- 8.0 HEMOGLOBIN 12.1 g/dl 12.0-16.0 PLATELET COUNT 304 10 3/uL 130-400 WHITE BLOOD CELL COUNT 8.3 10 3/uL 4.5-1 1.0 LYMPHOCYTE# 2.2 # 1.0-3.0 MONOCYTE# 0.9 # 0.0-1.0 EOSINOPHIL# 1.0 # 0.0-0.4 BASOPHIL# 0.0 # 0.0-0.2 SEGS 47 % 50-65 BANDS 3 % 0-10 LYMPHS 27 % 15-45 MONOS 11 % 0-10 EOS 12 % 0-5 RED BLOOD CELL 4.08 10 6/uL 3.50-5.40 HEMATOCRIT 36.7 % 36-48 MEAN CORPUSCULAR VOLUME 89.8 fL 79-99 MEAN CORPUSCULAR HEMOGLOBIN 29.6 pg 25 .0-34.0 MEAN CELL HEMOGLOBIN CONC. 32.9 g/dL 31. 0-36.0 RED CELL DISTRIBUTION WIDTH 13.7 % 11 .0-15.0 MEAN PLATELET VOLUME 7.9 fL 7.0-11.0 PROTIME INR - 03/27/17 18:05 PROTHROMBINE DARYL 13.2 Seconds 11.9-14.4 PROTIME INR 1.01 0.87-1.13 APTT - 03/27/17 18:05 APTT 26.7 Seconds 23.9-34.0 COMP METABOLIC PROFILE - 03/27/17 18:05 ALBUMIN 3.8 g/dL 3.3-4.5 ALKALINE PHOSPHATASE 71.0 U/L 50-136 ANION GAP 10 mmol/l 8-11 BILIRUBIN TOTAL 0.2 mg/dL 0.0-1.2 GLUCOSE 95 mg/dL 70-99 BUN 14 mg/dL 5-21 CALCIUM 10.2 mg/dL 8.6-10.5 CHLORIDE 102 mmol/L 100-112 CARBON DIOXIDE 29 mEq/L 18-30 AST/GOT 24.0 U/L 6-37 ALT/GPT 27.0 U/L 12-78 POTASSIUM 3.4 mmol/L 3.4-5.2 SODIUM 141 mmol/L 135-150 TOTAL PROTEIN 6.5 g/dL 6.4-8.2 CREATININE 0.69 mg/dL 0.60-1.30 GFR ESTIMATE > 60 mL/Min > 60 AG RATIO 1.4 0.7-2.0 CARDIAC PROFILE (X3) - 03/27/17 18:05 TROPONIN-I < 0.01 ng/mL 0.00-0.05 NATRIURETIC PEPTIDE B-TYPE - 03/27/17 18 :05 NATRIURETIC PEPTIDE B-TYPE 50.5 pg/mL <1 00 COMPLETE BLOOD COUNT W/DIFF - 03/27/17 1 8:05 HEMOGLOBIN 12.1 g/dl 12.0-16.0 PLATELET COUNT 304 10 3/uL 130-400 WHITE BLOOD CELL COUNT 8.3 10 3/uL 4.5-1 1.0 NEUTROPHIL% 48.7 % 43.0-72.0 LYMPHOCYTE% 27.9 % 15.0-45.0 MONOCYT% 11.6 % 1.0-12.0 EOSINOPHIL% 11.0 % 0.0-6.0 BASOPHIL% 0.8 % 0.0-2.0 NEUTROPHIL# 4.0 10 3/uL 1.0-8.0 LYMPHOCYTE# 2.3 10 3/uL 1.0-3.0 MONOCYTE# 1.0 10 3/uL 0.0-1.0 EOSINOPHIL# 0.9 10 3/uL 0.0-0.4 BASOPHIL# 0.1 10 3/uL 0.0-0.2 RED BLOOD CELL 4.08 10 6/uL 3.50-5.40 HEMATOCRIT 36.7 % 36-48 MEAN CORPUSCULAR VOLUME 89.8 fL 79-99 MEAN CORPUSCULAR HEMOGLOBIN 29.6 pg 25 .0-34.0 MEAN CELL HEMOGLOBIN CONC. 32.9 g/dL 31. 0-36.0 RED CELL DISTRIBUTION WIDTH 13.7 % 11 .0-15.0 MEAN PLATELET VOLUME 7.9 fL 7.0-11.0 CBC WITH MANUAL DIFFERENTIAL - 03/27/17 18:05 ABSOLUTE NEUTROPHIL COUNT 4.2 # 1.0- 8.0 HEMOGLOBIN 12.1 g/dl 12.0-16.0 PLATELET COUNT 304 10 3/uL 130-400 WHITE BLOOD CELL COUNT 8.3 10 3/uL 4.5-1 1.0 LYMPHOCYTE# 2.2 # 1.0-3.0 MONOCYTE# 0.9 # 0.0-1.0 EOSINOPHIL# 1.0 # 0.0-0.4 BASOPHIL# 0.0 # 0.0-0.2 SEGS 47 % 50-65 BANDS 3 % 0-10 LYMPHS 27 % 15-45 MONOS 11 % 0-10 EOS 12 % 0-5 RED BLOOD CELL 4.08 10 6/uL 3.50-5.40 HEMATOCRIT 36.7 % 36-48 MEAN CORPUSCULAR VOLUME 89.8 fL 79-99 MEAN CORPUSCULAR HEMOGLOBIN 29.6 pg 25 .0-34.0 MEAN CELL HEMOGLOBIN CONC. 32.9 g/dL 31. 0-36.0 RED CELL DISTRIBUTION WIDTH 13.7 % 11 .0-15.0 MEAN PLATELET VOLUME 7.9 fL 7.0-11.0 PROTIME INR - 03/27/17 18:05 PROTHROMBINE DARYL 13.2 Seconds 11.9-14.4 PROTIME INR 1.01 0.87-1.13 APTT - 03/27/17 18:05 APTT 26.7 Seconds 23.9-34.0 COMP METABOLIC PROFILE - 03/27/17 18:05 ALBUMIN 3.8 g/dL 3.3-4.5 ALKALINE PHOSPHATASE 71.0 U/L 50-136 ANION GAP 10 mmol/l 8-11 BILIRUBIN TOTAL 0.2 mg/dL 0.0-1.2 GLUCOSE 95 mg/dL 70-99 BUN 14 mg/dL 5-21 CALCIUM 10.2 mg/dL 8.6-10.5 CHLORIDE 102 mmol/L 100-112 CARBON DIOXIDE 29 mEq/L 18-30 AST/GOT 24.0 U/L 6-37 ALT/GPT 27.0 U/L 12-78 POTASSIUM 3.4 mmol/L 3.4-5.2 SODIUM 141 mmol/L 135-150 TOTAL PROTEIN 6.5 g/dL 6.4-8.2 CREATININE 0.69 mg/dL 0.60-1.30 GFR ESTIMATE > 60 mL/Min > 60 AG RATIO 1.4 0.7-2.0 CARDIAC PROFILE (X3) - 03/27/17 18:05 TROPONIN-I < 0.01 ng/mL 0.00-0.05 NATRIURETIC PEPTIDE B-TYPE - 03/27/17 18 :05 NATRIURETIC PEPTIDE B-TYPE 50.5 pg/mL <1 00 CBC WITH AUTO DIFFERENTIAL - 04/17/18 08 :52 BASOPHILS RELATIVE PERCENT 1.5 % 0.0 -2.5 EOSINOPHILS RELATIVE PERCENT 10.0 % < =5.0 HEMATOCRIT 40.4 % 34.9-44.5 HEMOGLOBIN 13.1 g/dL 12.0-15.5 LYMPHOCYTES RELATIVE PERCENT 24.4 % 2 2.0-49.0 MEAN CORPUSCULAR HEMOGLOBIN 29.4 pg 26 .0-34.0 MEAN CORPUSCULAR HEMOGLOBIN CONC 32.6 g/dL 31.0-37.0 MEAN CORPUSCULAR VOLUME 90.2 fL 81.6-9 8.3 MONOCYTES RELATIVE PERCENT 12.0 % 2.0 -9.0 NEUTROPHILS RELATIVE PERCENT 52.1 % 4 0.0-75.0 PLATELET COUNT 371 10E9/L 150-450 RED BLOOD CELL COUNT 4.47 10E12/L 3.90-5 .03 RED CELL DISTRIBUTION WIDTH 13.6 % 11 .9-15.5 [id number] 5.0 10E9/L 3.5-10.5 6447571 1.20 10E9/L 0.90-2.90 9905888 0.60 10E9/L 0.30-0.90 5914045 0.50 10E9/L 0.05-0.50 1607281 2.60 10E9/L 1.70-7.00 6019999 0.10 10E9/L 0.00-0.30 TSH (REFLEX FREE T4 IF ABNORMAL) - 04/17 08:52 TSH 1.776 uIU/mL 0.358-3.740 COMPREHENSIVE METABOLIC PANEL - 04/17/18 08:52 ALBUMIN 3.7 g/dL 3.4-5.0 ALKALINE PHOSPHATASE 76 U/L 46-116 ALT 44 U/L 14-59 ANION GAP 6 AST 19 U/L 15-37 BILIRUBIN,TOTAL 0.4 mg/dL 0.2-1.0 BUN BLOOD 9 mg/dL 7-18 CALCIUM 9.8 mg/dL 8.8-10.1 CHLORIDE 103 mmol/L 98-107 CO2 34 mmol/L 21-32 CREATININE 0.74 mg/dL 0.55-1.02 EGFR > mL/min >59 GLUCOSE 84 mg/dL 74-106 POTASSIUM 3.6 mmol/L 3.5-5.1 PROTEIN TOTAL 7.0 g/dL 6.4-8.2 SODIUM 143 mmol/L 136-145 LIPID PANEL - 04/17/18 08:52 CHOLESTEROL 186 mg/dL <200 HDL CHOLESTEROL 78 mg/dL >=40 LDL CHOLESTEROL 96 mg/dL NON-HDL CHOLESTEROL 108 mg/dL 0-129 TRIGLYCERIDE 61 mg/dL <150 CBC WITH AUTO DIFFERENTIAL - 04/17/18 08 :52 BASOPHILS RELATIVE PERCENT 1.5 % 0.0 -2.5 EOSINOPHILS RELATIVE PERCENT 10.0 % < =5.0 HEMATOCRIT 40.4 % 34.9-44.5 HEMOGLOBIN 13.1 g/dL 12.0-15.5 LYMPHOCYTES RELATIVE PERCENT 24.4 % 2 2.0-49.0 MEAN CORPUSCULAR HEMOGLOBIN 29.4 pg 26 .0-34.0 MEAN CORPUSCULAR HEMOGLOBIN CONC 32.6 g/dL 31.0-37.0 MEAN CORPUSCULAR VOLUME 90.2 fL 81.6-9 8.3 MONOCYTES RELATIVE PERCENT 12.0 % 2.0 -9.0 NEUTROPHILS RELATIVE PERCENT 52.1 % 4 0.0-75.0 PLATELET COUNT 371 10E9/L 150-450 RED BLOOD CELL COUNT 4.47 10E12/L 3.90-5 .03 RED CELL DISTRIBUTION WIDTH 13.6 % 11 .9-15.5 4106010 5.0 10E9/L 3.5-10.5 5705620 1.20 10E9/L 0.90-2.90 5774745 0.60 10E9/L 0.30-0.90 0348313 0.50 10E9/L 0.05-0.50 5081393 2.60 10E9/L 1.70-7.00 3836472 0.10 10E9/L 0.00-0.30 TSH (REFLEX FREE T4 IF ABNORMAL) - 04/17 08:52 TSH 1.776 uIU/mL 0.358-3.740 COMPREHENSIVE METABOLIC PANEL - 04/17/18 08:52 ALBUMIN 3.7 g/dL 3.4-5.0 ALKALINE PHOSPHATASE 76 U/L 46-116 ALT 44 U/L 14-59 ANION GAP 6 AST 19 U/L 15-37 BILIRUBIN,TOTAL 0.4 mg/dL 0.2-1.0 BUN BLOOD 9 mg/dL 7-18 CALCIUM 9.8 mg/dL 8.8-10.1 CHLORIDE 103 mmol/L 98-107 CO2 34 mmol/L 21-32 CREATININE 0.74 mg/dL 0.55-1.02 EGFR > mL/min >59 GLUCOSE 84 mg/dL 74-106 POTASSIUM 3.6 mmol/L 3.5-5.1 PROTEIN TOTAL 7.0 g/dL 6.4-8.2 SODIUM 143 mmol/L 136-145 LIPID PANEL - 04/17/18 08:52 CHOLESTEROL 186 mg/dL <200 HDL CHOLESTEROL 78 mg/dL >=40 LDL CHOLESTEROL 96 mg/dL NON-HDL CHOLESTEROL 108 mg/dL 0-129 TRIGLYCERIDE 61 mg/dL <150 CBC WITH AUTO DIFFERENTIAL - 04/21/19 08 :12 BASOPHILS RELATIVE PERCENT 0.6 % 0.0 -2.5 EOSINOPHILS RELATIVE PERCENT 8.9 % < =5.0 HEMATOCRIT 46.4 % 34.9-44.5 HEMOGLOBIN 14.5 g/dL 12.0-15.5 LYMPHOCYTES RELATIVE PERCENT 23.3 % 2 2.0-49.0 MEAN CORPUSCULAR HEMOGLOBIN 29.1 pg 26 .0-34.0 MEAN CORPUSCULAR HEMOGLOBIN CONC 31.3 g/dL 31.0-37.0 MEAN CORPUSCULAR VOLUME 93.2 fL 81.6-9 8.3 MONOCYTES RELATIVE PERCENT 11.3 % 2.0 -9.0 NEUTROPHILS RELATIVE PERCENT 55.9 % 4 0.0-75.0 PLATELET COUNT 274 10*3/uL 150-450 RED BLOOD CELL COUNT 4.98 10*6/uL 3.90-5 .03 RED CELL DISTRIBUTION WIDTH 14.9 % 11 .9-15.5 0422110 6.3 10*3/uL 3.5-10.5 4103991 1.47 10*3/uL 0.90-2.90 4292017 0.71 10*3/uL 0.30-0.90 2477976 0.56 10*3/uL 0.05-0.50 2346507 3.53 10*3/uL 1.70-7.00 1441408 0.04 10*3/uL 0.00-0.30 TSH (REFLEX FREE T4 IF ABNORMAL) - 04/21 08:12 TSH 2.377 uIU/mL 0.358-3.740 CBC WITH AUTO DIFFERENTIAL - 04/21/19 08 :12 BASOPHILS RELATIVE PERCENT 0.6 % 0.0 -2.5 EOSINOPHILS RELATIVE PERCENT 8.9 % < =5.0 HEMATOCRIT 46.4 % 34.9-44.5 HEMOGLOBIN 14.5 g/dL 12.0-15.5 LYMPHOCYTES RELATIVE PERCENT 23.3 % 2 2.0-49.0 MEAN CORPUSCULAR HEMOGLOBIN 29.1 pg 26 .0-34.0 MEAN CORPUSCULAR HEMOGLOBIN CONC 31.3 g/dL 31.0-37.0 MEAN CORPUSCULAR VOLUME 93.2 fL 81.6-9 8.3 MONOCYTES RELATIVE PERCENT 11.3 % 2.0 -9.0 NEUTROPHILS RELATIVE PERCENT 55.9 % 4 0.0-75.0 PLATELET COUNT 274 10*3/uL 150-450 RED BLOOD CELL COUNT 4.98 10*6/uL 3.90-5 .03 RED CELL DISTRIBUTION WIDTH 14.9 % 11 .9-15.5 3260927 6.3 10*3/uL 3.5-10.5 9907776 1.47 10*3/uL 0.90-2.90 0441392 0.71 10*3/uL 0.30-0.90 1320556 0.56 10*3/uL 0.05-0.50 2519847 3.53 10*3/uL 1.70-7.00 1308255 0.04 10*3/uL 0.00-0.30 TSH (REFLEX FREE T4 IF ABNORMAL) - 04/21 08:12 TSH 2.377 uIU/mL 0.358-3.740 Radiology Report from [facility] on 03/27 18:58:00 Patient Name: NEDRAFIORJOANNEMORRIS Vergara. [facility] sician: Wanda Grant MD (ED)EXAM# TYPE/EXAM [id number] RAD/CHEST 1V PORTABLE HISTORY: Indication chest pain ____Exam: Chest one view portableIndication: Chest pain.Technique: Portable AP upright view of the chest.Comparison: None.Findings:Heart size is normal with unremarkable mediastinal contours. Lungs aresymmetric in volume, with mildly low lung volumes bilaterally. Minimallinear opacities lung bases, likely atelectasis or scarring. No focalalveolar consolidation, significant pleural effusion or pneumothorax. Nopulmonary edema. Marked right and at least mild to moderate leftglenohumeral joint osteoarthritic changes. S-type scoliotic curvature ofthe thoracic and lumbar spine.Impression:Mildly low lung volumes and probable mild bibasilar atelectasis. Noevidence of CHF or definite pneumonia. 6:52:59 PM REPORT ELECTRONICALLY SIGNED Reported By: CECILIA CAMARA; RADIOLOGIST 03/27/2017 (200)CC: Wanda Grant MD (ED)PAGE 1Name: JOANNE SNEED Ord Phys: Wanda Grant MD (Radiology No: [id number] Tech: Critic : 1950 Age: 67 Sex: F Exam Date: 03/27/2017 Loc: EDTranscribed Date/Time: () Correctional Probation Officer: Date/Time: 03/27/2017 (511)Signed Report Radiology Report from [facility] on 03/27 18:58:00 Patient Name: WILLIAMS SNEEDJACINTO Vergara. Phy sician: Wanda Grant MD (ED)EXAM# TYPE/EXAM [id number] RAD/CHEST 1V PORTABLE HISTORY: Indication chest pain ____Exam: Chest one view portableIndication: Chest pain.Technique: Portable AP upright view of the chest.Comparison: None.Findings:Heart size is normal with unremarkable mediastinal contours. Lungs aresymmetric in volume, with mildly low lung volumes bilaterally. Minimallinear opacities lung bases, likely atelectasis or scarring. No focalalveolar consolidation, significant pleural effusion or pneumothorax. Nopulmonary edema. Marked right and at least mild to moderate leftglenohumeral joint osteoarthritic changes. S-type scoliotic curvature ofthe thoracic and lumbar spine.Impression:Mildly low lung volumes and probable mild bibasilar atelectasis. Noevidence of CHF or definite pneumonia. 6:52:59 PM REPORT ELECTRONICALLY SIGNED Reported By: CECILIA CAMARA; RADIOLOGIST 03/27/2017 (4317)CC: Wanda Grant MD (ED)PAGE 1Name: JOANNE SNEED Ord Phys: Wanda Grant MD (Radiology No: [id number] Tech: Critic : 1950 Age: 67 Sex: F Exam Date: 03/27/2017 Loc: EDTranscribed Date/Time: () Correctional Probation Officer: Date/Time: 03/27/2017 (1853)Signed Report Radiology Report from [id number] on 13:36:00 Patient Name: JOANNE SNEED. Phy sician: Sharlene Cullen MDEXAM# TYPE/EXAM [id number] NU/LEXISCAN STRESS CARDIO #[id number] HISTORY: SOB PRECORDIAL PAIN ____DATE OF SERVICE: 04/25/2017TYPE OF SERVICE: Lexiscan Cardiolite stress test:1. Interpretation of Lexiscan pharmacologic stress.2. Interpretation of nuclear myocardial perfusion images.PARKING ATTENDANT: ROBERT Rubio CARE PROVIDER: Sharlene Cullen MDINDICATION FOR PROCEDURE: Evaluation of chest pain and dyspnea.DESCRIPTION OF PROCEDURE: Lexiscan Cardiolite stress testing was performedusing Lexiscan pharmacologic stress. The procedure was completed according toprotocol. The patient reported mild chest heaviness, dyspnea, and dizziness,following Lexiscan injection.Nuclear myocardial perfusion imaging was performed. Sestamibi was injected IVwith 9.9 mCi at rest and 29.4 mCi at peak stress. The images were processedand interpreted using orthogonal views and determination of left ventricularstress ejection fraction.HEMODYNAMIC SUMMARY: The heart rate changed from 69 BPM to 84 BPM. The bloodpressure changed from 158/81 to 137/82.ELECTROCARDIOGRAM SUMMARY: At baseline, the ECG showed sinus rhythm and it wasnormal. At peak stress, the ECG was nondiagnostic for ischemia.NUCLEAR MYOCARDIAL PERFUSION SUMMARY: Left ventricular myocardial perfusionappeared normal, with no evidence of reversible myocardial ischemia orirreversible scar. Left ventricular size was normal, with a normal stressejection fraction of 72%.IMPRESSION:1. Lexiscan pharmacologic stress associated with mild chest heaviness,dyspnea, and dizziness.PAGE 1 (CONTINUED)Name: JOANNE SNEED Ord Phys: Sharlene Cullen MDRadiology No: [id number] Tech: Critic : 1950 Age: 67 Sex: F Exam Date: 04/25/2017 Loc: RADTranscribed Date/Time: 04/27/2017 (958) Correctional Probation Officer: IFRAH.TLEPrinted Date/Time: 04/27/2017 (2546)Signed ReportPatient Name: JOANNE SNEED. Physician: Sharlene Cullen MDEXAM# TYPE/EXAM [id number] NU/LEXISCAN STRESS CARDIO #[id number]<Continued>2. Stress electrocardiogram nondiagnostic for ischemia.3. No evidence of reversible left ventricular myocardial ischemia.4. No evidence of irreversible left ventricular myocardial scar.5. Normal left ventricular size.6. Normal left ventricular stress ejection fraction of 72%.Dictated Date: 04/26/17 Time Dictated: 10:01 PM Control #: [id number] report was copied and pasted from [employer] by Trevor Kennedy on 04/27/17. REPORT ELECTRONICALLY SIGNED Reported By: Foreign Cooney MD 04/26/2017 (4578)Signed By: Foreign Cooney MD 04/27/2017 (2125)CC: Sharlene Cullen MDPAGE 2Name: JOANNE SNEED Ord Phys: Sharlene Cullen MDRadiology No: [id number] Tech: Critic : 1950 Age: 67 Sex: F Exam Date: 04/25/2017 Loc: RADTranscribed Date/Time: 04/27/2017 (59) Correctional Probation Officer: IFRAH.TLEPrinted Date/Time: 04/27/2017 (7435)Signed Report Radiology Report from [id number] on 13:36:00 Patient Name: JOANNE SNEED. y sician: Sharlene Cullen MDEX# TYPE/EXAM [id number] NU/LEXISCAN STRESS CARDIO #[id number] HISTORY: SOB PRECORDIAL PAIN ____DATE OF SERVICE: 04/25/2017TYPE OF SERVICE: Lexiscan Cardiolite stress test:1. Interpretation of Lexiscan pharmacologic stress.2. Interpretation of nuclear myocardial perfusion images.PARKING ATTENDANT: ROBERT Rubio CARE PROVIDER: Sharlene Cullen MDINDICATION FOR PROCEDURE: Evaluation of chest pain and dyspnea.DESCRIPTION OF PROCEDURE: Lexiscan Cardiolite stress testing was performedusing Lexiscan pharmacologic stress. The procedure was completed according toprotocol. The patient reported mild chest heaviness, dyspnea, and dizziness,following Lexiscan injection.Nuclear myocardial perfusion imaging was performed. Sestamibi was injected IVwith 9.9 mCi at rest and 29.4 mCi at peak stress. The images were processedand interpreted using orthogonal views and determination of left ventricularstress ejection fraction.HEMODYNAMIC SUMMARY: The heart rate changed from 69 BPM to 84 BPM. The bloodpressure changed from 158/81 to 137/82.ELECTROCARDIOGRAM SUMMARY: At baseline, the ECG showed sinus rhythm and it wasnormal. At peak stress, the ECG was nondiagnostic for ischemia.NUCLEAR MYOCARDIAL PERFUSION SUMMARY: Left ventricular myocardial perfusionappeared normal, with no evidence of reversible myocardial ischemia orirreversible scar. Left ventricular size was normal, with a normal stressejection fraction of 72%.IMPRESSION:1. Lexiscan pharmacologic stress associated with mild chest heaviness,dyspnea, and dizziness.PAGE 1 (CONTINUED)Name: JOANNE SNEED Ord Phys: SubhashSharlene Dominik MDRadiology No: [id number] Tech: Critic : 1950 Age: 67 Sex: F Exam Date: 04/25/2017 Loc: RADTranscribed Date/Time: 04/27/2017 (09) Correctional Probation Officer: HIM.TLEPrinted Date/Time: 04/27/2017 (4317)Signed ReportPatient Name: JOANNE SNEED. Physician: Sharlene Cullen MDEXAM# TYPE/EXAM [id number] NU/LEXISCAN STRESS CARDIO #[id number]<Continued>2. Stress electrocardiogram nondiagnostic for ischemia.3. No evidence of reversible left ventricular myocardial ischemia.4. No evidence of irreversible left ventricular myocardial scar.5. Normal left ventricular size.6. Normal left ventricular stress ejection fraction of 72%.Dictated Date: 04/26/17 Time Dictated: 10:01 PM Control #: [id number] report was copied and pasted from [employer] by Trevor Kennedy on 04/27/17. REPORT ELECTRONICALLY SIGNED Reported By: Foreign Cooney MD 04/26/2017 (1328)Signed By: Foreign Cooney MD 04/27/2017 (7112)CC: Sharlene Cullen MDPAGE 2Name: JOANNE SNEED Ord Phys: Sharlene Cullen MDRadiology No: [id number] Tech: Critic : 1950 Age: 67 Sex: F Exam Date: 04/25/2017 Loc: RADTranscribed Date/Time: 04/27/2017 (59) Correctional Probation Officer: HIM.TLEPrinted Date/Time: 04/27/2017 (2882)Signed Report Radiology Report from [id number] on 02/2018 11:40:00 [facility] [address] [place] [address] Mammography Report Signed Patient: Joanne Sneed MR#: [id number] : 1950 Acct:[id number] Age/Sex: 67 / F ADM Date: 08/07/17 Loc: RAD Attending Provider: Sharlene Cullen MD Ordering Provider: Sharlene Cam: 1 Negative Date of Service: 08/07/17 Follow Up: 1 Year Follow-Up Procedure(s): MM screening mammo BI Accession Number(s): [id number] EXAM: Bilateral Digital Screening Mammogram INDICATION: Routine screening. COMPARISON: January 18, 2016 TECHNIQUE: Bilateral digital MLO and CC views were obtained. CAD software was utilized in evaluation of this study. BREAST DENSITY: Breast density is scattered fibroglandular. FINDINGS: No suspicious calcification, architectural distortion, or developing mass. IMPRESSION: Negative screening mammogram. Annual screening mammogram is recommended and patient was entered into [facility]'s reminder system. BI-RADS Category 1 - Negative Dictated By:Jose Metz Signed By:08/07/17 1136 DD/ 1135 TD/TT: Correctional Probation Officer: VALENCIA cc: Sharlene Cullen; Jose Metz Radiology Report from [id number] on 02/2018 11:40:00 [place] [address] [place] [address] Mammography Report Signed Patient: Joanne Sneed MR#: [id number] : 1950 Acct:[id number] Age/Sex: 67 / F ADM Date: 08/07/17 Loc: RAD Attending Provider: Sharlene Cullen MD Ordering Provider: Sharlene Cam: 1 Negative Date of Service: 08/07/17 Follow Up: 1 Year Follow-Up Procedure(s): MM screening mammo BI Accession Number(s): [id number] EXAM: Bilateral Digital Screening Mammogram INDICATION: Routine screening. COMPARISON: January 18, 2016 TECHNIQUE: Bilateral digital MLO and CC views were obtained. CAD software was utilized in evaluation of this study. BREAST DENSITY: Breast density is scattered fibroglandular. FINDINGS: No suspicious calcification, architectural distortion, or developing mass. IMPRESSION: Negative screening mammogram. Annual screening mammogram is recommended and patient was entered into [facility]'s reminder system. BI-RADS Category 1 - Negative Dictated By:Jose Metz Signed By:08/07/17 1136 DD/ 1135 TD/TT: Correctional Probation Officer: VALENCIA cc: Sharlene Cullen; Jose Metz Radiology Report from [id number] on 11:01:00 [place] [address] [place] [address] Mammography Report Signed Patient: Joanne Sneed MR#: [id number] : 1950 Acct:[id number] Age/Sex: 68 / F ADM Date: 08/18/18 Loc: RAD Attending Provider: Sharlene Cullen MD Ordering Provider: Sharlene Cullen Birad: 2 Benign Finding(s) Date of Service: 08/18/18 Follow Up: 1 Year Follow-Up Procedure(s): MM screening mammo BI Accession Number(s): [id number] Clinical history: Patient presents for bilateral screening digital mammogram. Her mother was diagnosed with breast cancer. She has no personal or family history otherwise. No current complaints. 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 Comparison: 03/11/2009, 03/13/2010, 01/18/2016, 08/07/2017. Findings: Bilateral screening digital mammogram is performed in CC and MLO projection and demonstrates scattered fibroglandular elements within both breasts. These overall have not significantly change when compared to the prior. There has been no interval development of dominant or suspicious mass or architectural distortion. No suspicious calcifications are seen. Occasional benign-appearing calcifications are seen and are similar. A mole is marked on the right. There is uniform skin thickness throughout. Computer-aided detection is utilized for review of this exam. Impression: 1. Stable mammographic appeara nce of both breasts without interval development of suspicious mammographic abnormality. Routine follow-up bilateral mammogram is recommended in 1 year, in the absence of clinical abnormality. BI-RADS category 2: Benign findings. Note: Patient is entered into the [employer] reminder system with a target due date for next mammogram. Dictated By:Adryan Gonzalez Signed By:08/18/18 0952 DD/ TD/TT: Correctional Probation Officer: [place] cc: Sharlene Cullen Radiology Report from [id number] on 11:01:00 [place] [address] [place] [address] Mammography Report Signed Patient: Joanne Sneed MR#: [id number] : 1950 Acct:[id number] Age/Sex: 68 / F ADM Date: 08/18/18 Loc: RAD Attending Provider: Sharlene Cullen MD Ordering Provider: Sharlene Cullen Birad: 2 Benign Finding(s) Date of Service: 08/18/18 Follow Up: 1 Year Follow-Up Procedure(s): MM screening mammo BI Accession Number(s): [id number] Clinical history: Patient presents for bilateral screening digital mammogram. Her mother was diagnosed with breast cancer. She has no personal or family history otherwise. No current complaints. 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 Comparison: 03/11/2009, 03/13/2010, 01/18/2016, 08/07/2017. Findings: Bilateral screening digital mammogram is performed in CC and MLO projection and demonstrates scattered fibroglandular elements within both breasts. These overall have not significantly change when compared to the prior. There has been no interval development of dominant or suspicious mass or architectural distortion. No suspicious calcifications are seen. Occasional benign-appearing calcifications are seen and are similar. A mole is marked on the right. There is uniform skin thickness throughout. Computer-aided detection is utilized for review of this exam. Impression: 1. Stable mammographic appeara nce of both breasts without interval development of suspicious mammographic abnormality. Routine follow-up bilateral mammogram is recommended in 1 year, in the absence of clinical abnormality. BI-RADS category 2: Benign findings. Note: Patient is entered into the [employer] reminder system with a target due date for next mammogram. Dictated By:Adryan oGnzalez Signed By:08/18/1852 DD/ 1 TD/TT: Correctional Probation Officer: [place] cc: Sharlene Cullen Encounters ACCT No. Visit Date/Time Discharge Status Pt. Type Provider Facility Loc./Unit Complaint [id number] 08/14/2017 13:54:00 08/14/2017 23:59: 59 CLS Outpatient Robina Cody Dilan [place] al Yisel [facility] [id number] 05/03/2019 00:36:00 020 03:12:00 DIS Emergency RACHAEL CHUCKY HAN [facility] ER FALL [id number] 02/15/2016 00:00:00 02/15/2016 23:59: 59 CLS Outpatient [id number] 07/26/2015 00:00:00 07/26/2015 23:59: 59 CLS Outpatient [id number] 08/18/2018 08:42:00 019 08:43:00 DIS Outpatient Sharlene Cullen MD [facility] RAD screening [id number] 04/25/2017 07:39:00 017 23:59:59 CLS Outpatient Sharlene Cullen MD [facility] RAD [id number] 03/27/2017 17:30:00 017 20:35:00 DIS Emergency Gilles WOODWARD, Allie Meehan [facility] ED [id number] 06/27/2016 00:00:00 017 23:59:59 CLS Preadmit [facility] Alec HAN [facility] PTC [id number] 05/30/2016 12:01:00 017 00:00:00 DIS Clarence Big SkyAlec diana DO [facility] PTC [id number] 05/01/2016 13:51:00 017 00:00:00 DIS Alec Plaza DO [facility] PTC [id number] 01/18/2016 10:26:00 016 23:59:59 CLS Outpatient Beverly Diaz [facility] RAD [id number] 08/07/2017 10:47:00 Document Registration [id number] 05/03/2019 00:36:00 020 03:12:00 DIS Emergency RACHAEL CHUCKY HAN [facility] ER FALL [id number] 04/20/2019 13:29:05 9 23:59:59 CLS Outpatient SHARLENE CULLEN [facility] [id number] 01/19/2019 13:43:31 9 23:59:59 CLS Outpatient SHARLENE CULLEN [facility] [id number] 12/03/2018 07:34:52 9 23:59:59 CLS Outpatient SHARLENE CULLEN [facility] [id number] 10/16/2018 14:18:12 9 23:59:59 CLS Outpatient SHARLENE CULLEN [facility] [id number] 07/21/2018 09:34:56 9 23:59:59 CLS Outpatient SHARLENE CULLEN [facility] [id number] 04/17/2018 08:51:44 8 23:59:59 CLS Outpatient [facility] [id number] 04/17/2018 08:20:44 8 23:59:59 CLS Outpatient SHARLENE CULLEN [facility] [id number] 01/06/2018 12:32:51 8 23:59:59 CLS Outpatient INDIO, ROSALBA [facility] [id number] 10/15/2017 09:38:27 8 23:59:59 CLS Outpatient SHARLENE CULLEN [facility] [id number] 07/15/2017 09:28:55 8 23:59:59 CLS Outpatient SHARLENE CULLEN [facility] [id number] 07/03/2017 13:28:26 8 23:59:59 CLS Outpatient NIDIO, ROSALBA [facility] [id number] 04/15/2017 07:50:20 7 23:59:59 CLS Outpatient SHARLENE CULLEN [facility] [id number] 03/28/2017 10:47:41 7 23:59:59 CLS Outpatient [facility] [id number] 03/28/2017 10:06:40 7 23:59:59 CLS Outpatient SHARLENE CULLEN [facility] [id number] 02/18/2017 15:04:27 7 23:59:59 [facility] [id number] 02/18/2017 14:15:47 7 23:59:59 CLS Outpatient SHARLENE CULLEN [facility] [id number] 01/07/2017 13:44:04 7 23:59:59 CLS Outpatient APRIL KAHN [facility] KZ[facility] [id number] 12/03/2016 11:33:48 7 23:59:59 [facility] [id number] 12/03/2016 11:08:21 7 23:59:59 CLS Outpatient ALEC HULL [facility] [id number] 10/11/2016 10:13:14 7 23:59:59 CLS Outpatient [facility] [id number] 10/11/2016 09:45:23 7 23:59:59 CLS Outpatient [facility]LEC HULL [facility] [id number] 08/27/2016 10:52:13 7 23:59:59 CLS Outpatient ALEC HULL [facility] [id number] 08/02/2016 08:54:11 7 23:59:59 CLS Outpatient FELL, OPAL AMEENA [facility] [id number] 05/18/2016 10:23:34 7 23:59:59 CLS Outpatient [facility] [id number] 05/18/2016 10:10:36 7 23:59:59 CLS Out[facility] [id number] 05/18/2016 09:47:30 7 23:59:59 CLS Outpatient FELL, OPAL AMEENA [facility] [id number] 04/12/2016 14:41:27 6 23:59:59 CLS Outpatient [facility] [id number] 04/04/2016 10:15:16 6 23:59:59 C[id number] 03/16/2016 10:02:04 6 23:59:59 C[facility] [id number] 01/30/2016 13:43:33 6 23:59:59 CLS Outpatient BEVERLY DIAZ [facility] EMPOR [id number] 2016 13:29:57 6 23:59:59 CLS Outpatient FELL, OPAL AMEENA [facility] EMPOR [id number] 2016 08:00:07 6 23:59:59 CLS Outpatient [facility] [id number] 01/23/2016 14:11:43 6 23:59:59 CLS Outpatient [facility] [id number] 01/23/2016 13:29:50 6 23:59:59 CLS Outpatient BEVERLY DIAZ [facility] EMP[facility] [id number] 01/16/2016 09:56:47 6 23:59:59 CLS Outpatient [facility] 901 [id number] 01/05/2016 13:21:53 6 23:59:59 CLS Outpatient SUDHEER SAHNI [facility] E[facility] [id number] 10/26/2015 10:26:04 6 23:59:59 CLS Outpatient FELL, OPAL AMEENA [facility] EMPOR [id number] 10/07/2015 10:32:37 6 23:59:59 CLS Outpatient [facility] EMPOR [id number] 10/06/2015 09:58:25 6 23:59:59 CLS Outpatient [facility] EMPOR [id number] 10/06/2015 09:20:07 6 23:59:59 CLS Outpatient FELL, OPAL AMEENA [facility] [id number] 04/21/2019 08:20:11 Document Registration [id number] 08/19/2018 14:17:34 Document Registration [id number] 08/07/2017 11:52:40 Document Registration [id number] 04/30/2017 16:40:34 Document Registration [id number] 10/15/2016 16:22:56 Document Registration [id number] 04/19/2016 11:23:56 Document Registration [id number] 05/18/2015 08:19:11 Document Registration [id number] 08/18/2018 08:42:00 019 08:43:00 DIS Outpatient Subhash WOODWARD, [facility] RAD screening [id number] 04/25/2017 07:39:00 017 23:59:59 CLS Outpatient Subhash WOODWARD, [facility] RAD [id number] 03/27/2017 17:30:00 017 20:35:00 DIS Emergency Gilles WOODWARD, Allie Meehan [facility] ED [id number] 06/27/2016 00:00:00 017 23:59:59 CLS [facility] PTC [id number] 05/30/2016 12:01:00 017 00:00:00 [facility] [id number] 05/01/2016 13:51:00 017 00:00:00 [facility] [id number] 01/18/2016 10:26:00 016 23:59:59 CLS Outpatient Beverly Diaz [facility] RAD [id number] 08/07/2017 10:47:00 Document Registration [id number] 02/15/2016 00:00:00 02/15/2016 23:59: 59 CLS Outpatient [id number] 07/26/2015 00:00:00 07/26/2015 23:59: 59 CLS Outpatient [id number] 02/08/2016 00:00:00 02/08/2016 23: 59:59 CLS Outpatient [facility] enter - Neurology SFNEUR [id number] 02/08/2016 00:00:00 02/08/2016 23: 59:59 CLS Outpatient [facility] enter - Neurology NEUR [id number] 08/14/2017 13:54:00 08/14/2017 23:59: 59 CLS Outpatient [facility] [id number] 04/20/2019 13:29:05 9 23:59:59 CLS [facility] E[facility] [id number] 01/19/2019 13:43:31 9 23:59:59 [id number] 12/03/2018 07:34:52 9 23:59:59 CLS [facility] [id number] 10/16/2018 14:18:12 9 23:59:59 CLS Outpatient SUBHASH, CY [facility] EMPOR [id number] 07/21/2018 09:34:56 9 23:59:59 CLS Outpatient SUBHASH CY [facility] EMPOR [id number] 04/17/2018 08:51:44 8 23:59:[address] [facility] EMPOR [id number] 04/17/2018 08:20:44 8 23:59:59 CLS Outpatient SUBHASH CY [facility] EMPOR [id number] 01/06/2018 12:32:51 8 23:59:59 CLS Outpatient ROSALBA BORJAS [facility] KZOR [id number] 10/15/2017 09:38:27 8 23:59:59 CLS Outpatient SUBHASH, CY [facility] EMPOR [id number] 07/15/2017 09:28:55 8 23:59:59 CLS Out[facility] SUBHASH, [facility] EMPOR [id number] 07/03/2017 13:28:26 8 23:59:59 CLS Outpatient ROSALBA BORJAS [facility] KZOR [id number] 04/15/2017 07:50:20 7 23:59:59 CLS Outpatient SHARLENE CULLEN [facility] EMPOR [id number] 03/28/2017 10:47:41 7 23:59:[address] [facility] EMPOR [id number] 03/28/2017 10:06:40 7 23:59:59 CLS Outpatient SHARLENE CULLEN [facility] EMPOR [id number] 02/18/2017 15:04:27 7 23:59:59 CLS Outpatient [facility] EMPOR [id number] 02/18/2017 14:15:47 7 23:59:59 CLS Outpatient SHARLENE CULLEN [facility] EMPOR [id number] 01/07/2017 13:44:04 7 23:59:59 [id number] 12/03/2016 11:33:48 7 23:59:[address] [facility] EMPOR [id number] 12/03/2016 11:08:21 7 23:59:59 CLS Outpatient ALEC HULL [facility] EMPOR [id number] 10/11/2016 10:13:14 7 23:59:59 [facility] [id number] 10/11/2016 09:45:23 7 23:59:59 CLS Outpatient ALEC HULL [facility] EMPOR [id number] 08/27/2016 10:52:13 7 23:59:59 CLS Outpatient CALLIE ALEC Dominik [facility] EMPOR [id number] 08/02/2016 08:54:11 7 23:59:59 CLS Outpatient FELL, OPAL AMEENA [facility] EMPOR [id number] 05/18/2016 10:23:34 7 23:59:[address] [facility] EMPORXR [id number] 05/18/2016 10:10:36 7 23:59:59 CLS Outpatient [facility] EMPOR [id number] 05/18/2016 09:47:30 7 23:59:59 CLS Outpatient FELL, OPAL AMEENA [facility] EMPOR [id number] 04/12/2016 14:41:27 6 23:59:59 CLS Outpatient [facility] EMPORXR [id number] 04/04/2016 10:15:16 6 23:59:59 CLS Outpatient FELL, OPAL AMEENA [facility] EMPOR [id number] 03/16/2016 10:02:04 6 23:59:59 CLS Outpatient ALEC HULL [facility] EMPOR [id number] 01/30/2016 13:43:33 6 23:59:59 CLS Outpatient BEVERLY DIAZ S [facility] EMPOR [id number] 2016 13:29:57 6 23:59:59 CLS Outpatient FELL, OPAL AMEENA [facility] EMPOR [id number] 2016 08:00:07 6 23:59:59 CLS Outpatient [facility] EMPOR [id number] 01/23/2016 14:11:43 6 23:59:59 CLS Outpatient [facility] EMPOR [id number] 01/23/2016 13:29:50 6 23:59:59 [facility] EMPOR [id number] 01/16/2016 09:56:47 6 23:59:59 CLS Outpatient [place] [id number] 01/05/2016 13:21:53 6 23:59:59 CLS Outpatient SUDHEER SAHNI [facility] EMPOR [id number] 10/26/2015 10:26:04 6 23:59:59 CLS Outpatient FELL, OPAL AMEENA [facility] EMPOR [id number] 10/07/2015 10:32:37 6 23:59:59 CLS Outpatient [facility] EMPOR [id number] 10/06/2015 09:58:25 6 23:59:59 CLS Outpatient [facility] EMPOR [id number] 10/06/2015 09:20:07 6 23:59:59 CLS Outpatient FELL, OPAL AMEENA [facility] EMPOR [id number] 04/21/2019 08:20:11 Document Registration [id number] 08/19/2018 14:17:34 Document Registration [id number] 08/07/2017 11:52:40 Document Registration [id number] 04/30/2017 16:40:34 Document Registration [id number] 10/15/2016 16:22:56 Document Registration [id number] 04/19/2016 11:23:56 Document Registration [id number] 05/18/2015 08:19:11 Document Registration [id number] 02/08/2016 00:00:00 02/08/2016 23: 59:59 CLS Outpatient [facility] enter - Neurology NEUR [id number] 02/08/2016 00:00:00 02/08/2016 23: 59:59 CLS Outpatient [facility] enter - Neurology NEJOE
--- NOTE | 2019-12-03 23:42 | ED Fall/Injury ---
General Chief Complaint: Trauma-Non Activation Stated Complaint: FALL Nursing Triage Note: TO ED ROOM 8 VIA [facility] EMS FROM [facility] AFTER UNWITNESSED FALL. C COLLAR IN PLACE EN ROUTE BY EMS. PT C/O LEFT HIP PAIN. HX DEMENTIA, POOR HISTORIAN. Source: patient Exam Limitations: other (cognitive status, dementia) (NORA MURPHY [employer]) Source: EMS, fdc records, caregiver Exam Limitations: other (cognitive status, dementia) (JENNIFER HENDERSON MD) History of Present Illness Date Seen by Provider: Dec 03, 2019 Time Seen by Provider: 23:00 Initial Comments This is a 69 y/o F here via EMS. Per EMS, pt had an unwitnessed fall at [facility]. Pt has dementia and is a poor historian, however she reports she felt dizzy, causing her to lose balance and fall, hitting her R head on "something" when she fell and lost consciousness. C/o pain on R posterior head, R hip, and midline T spine back pain. Pt is on daily ASA; no other anticoagulants. Occurred: this evening Injuries/Pain Location: head, back, lower extremity Context: unknown (possibly dizzy) Loss of Consciousness: unsure Modifying Factors: Worse With Immobilization; Improves With Movement Associated Symptoms (Fall): Dizziness, Headache, Neck Pain, Other (back pain) (KATHERINELULIMIKKI Segment) Initial Comments Here by EMS after unwitnessed fall at [facility] assisted living. She apparently had taken her evening meds and they had later down but he got up afterwards and fell. No loss of consciousness per staff report and EMS report. Patient is very poor historian with advanced dementia. She had reported a fall in the garden which did not happen. Complained of a variety of different pain that seems to be moving but seems most related to the right hip currently although didn't change to the shoulder later in the evaluation. Occurred: this evening Severity: mild Injuries/Pain Location: head, lower extremity Context: unknown (possibly dizzy) Loss of Consciousness: no loss of consciousness Modifying Factors: Improves With Rest Associated Symptoms (Fall): Headache, Neck Pain; No Shortness of Air; Other (back pain) (JENNIFER HENDERSON MD) Allergies and Home Medications Patient Home Medication List Home Medication List Reviewed: Yes (JENNIFER HENDERSON MD) Review of Systems Review of Systems Unable to perform ROS 2/2 cognitive status (NORA MURPHY) Constitutional: see HPI Unable to complete review of systems due to advanced dementia (JENNIFER HENDERSON MD) Past Igtlofb-Mbhisv-Mnfyaj Hx Past Med/Social Hx: Reviewed Nursing Past Med/Soc Hx (JENNIFER HENDERSON MD) Patient Social History Alcohol Use: Denies Use Recreational Drug Use: No Recent Hopitalizations: No Physical Abuse: No Sexual Abuse: No Mistreated: No Fear: No (NORA MURPHY) Seasonal Allergies Seasonal Allergies: No (NORA MURPHY) Past Medical History Surgeries: Yes (HAS MULTIPLE OLD CHEST AND ABDOMINAL SURGICAL SCARS-PT UNABLE TO STATE WHAT) Abdominal, Breast, Neurological, Orthopedic Respiratory: Yes Asthma Cardiac: Yes Hypertension Neurological: Yes Dementia Genitourinary: Yes (URGE INCONTINENCE) Gastrointestinal: Yes Chronic Constipation Musculoskeletal: Yes (CHRONIC RIGHT SHOULDER PAIN/ARTHRITIS; T-SPJNE RESECTION FOR TUMOR) Arthritis Endocrine: No HEENT: No Cancer: Yes Breast, Lymphoma Did You Recieve Any Treatments: Yes What Type of Treatment Did You: Chemotherapy, Radiation, Surgical Intervention Psychosocial: No Integumentary: No (NORA MURPHY) Family Medical History Reviewed Nursing Family Hx (JENNIFER HENDERSON MD) ON REVIEW OF OLD RADIOLOGICAL STUDIES, STUDY INFORMATION INCLUDED: HX OF LYMPHOMA, TX WITH CHEMO AND RADIATION HAD SEVERAL TUMORS REMOVED --IN CHEST--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 oz. kg; 26.00 BMI Method: General Appearance: WD/WN, no apparent distress, other (severely demented ) HEENT: PERRL/EOMI, normal ENT inspection Neck: other (no obvious deformities; in C-collar) Cardiovascular: normal peripheral pulses, regular rate, rhythm, no murmur Respiratory: chest non-tender, lungs clear, normal breath sounds Peripheral Pulses: 2+ Dorsalis Pedis (R), 2+ Left Dors-Pedis (L) Back: other (no obvious deformities; midline tenderness to T spine T7-9; No midline tenderness to rest of T spine or L spine) Extremities: other (No obious deformities, no limb length defects; R hip is externally rotated at rest but pt is able to rotate is normally with minimal pain. pt is able lift both LE; no abnormality to bilat UE) Neurologic/Psychiatric: alert; No oriented x 3 (demented; pt is oriented to self and place but not time) Skin: normal color, warm/dry (NORA MURPHY MED STUDEN) General Appearance: WD/WN, no apparent distress HEENT: PERRL/EOMI, normal ENT inspection, TMs normal Neck: No tender lateral, No tender midline; other (no obvious deformities; in C-collar. C-collar cleared after CT and has full range of motion without pain) Cardiovascular: regular rate, rhythm, no murmur Respiratory: lungs clear, normal breath sounds Gastrointestinal: non tender, soft Back: no vertebral tenderness; No CVA tenderness (R), No CVA tenderness (L) Extremities: non-tender, normal inspection, pelvis stable Neurologic/Psychiatric: alert, other (disoriented to place and time) Skin: normal color, warm/dry (JENNIFER HENDERSON MD) Mary Anne Coma Score Best Eye Response: (4) Open Spontaneously Best Verbal Response: (5) Oriented Best Motor Response: (6) Obeys Commands (JENNIFER HENDERSON MD) Progress/Results/Core Measures Results/Orders My Orders Orders - JENNIFER HENDERSON MD Ct Head/Cervical Spine Wo (12/03/19 22:49) Pelvis With Right Hip 2-3views (12/03/19 22:49) (JENNIFER HENDERSON MD) Vital Signs/I&O 12/03/19 22:45 Temp 36.6 Pulse 56 Resp 16 B/P (MAP) 162/90 (114) O2 Delivery Room Air (JENNIFER HENDERSON MD) Progress Progress Note : Time: 23:00 (NORA MURPHY [facility]) Progress Note : Progress Note I have seen and evaluated the patient and agree with above except as indicated. I have directed the plan of care. CT head and neck as well as x-ray of pelvis and right hip ordered. Monitor patient. 0015: I did have a conversation with the patient's son and durable power of trademark attorney, Jerry Painting regarding CT findings. Does have tiny focus of attenuation in the left parietal cortex which may be intraparenchymal hemorrhage. We did have long conversation and patient is not surgical candidate and does have advanced Alzheimer's disease. We discussed several options including transfer, observation admission here and returned to the nursing care facility. Ultimately we decided on return to the care facility. I did discuss the case with Elana, the medical record administrator at the facility for the overnight. We both agree that the patient would do better back at the facility especially because of her confusion and the increased agitation and symptoms when patient is not on her normal environment. The son agreed with that as well. They will monitor her and return if symptoms worsen but are comfortable with home therapy now. Discharge back to her nursing care facility with return precautions. They verbalize understanding instructions and agreement with plan. (JENNIFER HENDERSON MD) Diagnostic Imaging Diagonstic Imaging: CT Plain Films/CT/US/NM/MRI: c-spine, pelvis, head Comments CT head and neck W/O Contrast, Read by Dr. Rocky Tovar MD: "There is a 4mm high attenuation focuz w/in the left parietal cortex. A tiny intraparenchymal hemorrhage could have this appearance" (NORA MURPHY [facility]) Reviewed: Reviewed [place] Hawk Study, Reviewed by Me Diagonstic Imaging: Xray Plain Films/CT/US/NM/MRI: pelvis, hip Comments No acute findings (JENNIFER HENDERSON MD) Departure Impression Primary Impression: Intraparenchymal hemorrhage of brain Additional Impressions: Contusion, hip Qualified Codes: S70.01XA - Contusion of right hip, initial encounter Advanced dementia Disposition: HOME, SELF-CARE Condition: Stable Departure-Patient Inst. Decision time for Depature: 00:25 (JENNIFER HENDERSON MD) Referrals: CECILIA JEFF MD (PCP/Family) Primary Care Physician Patient Instructions: Intracranial Hematoma Add. Discharge Instructions: All discharge instructions reviewed with patient and/or family. Voiced understanding. The CT scan shows a small area that may be an intraparenchymal hemorrhage (hematoma) of about 4 mm in size. There is no other significant head bleed noted. Please monitor for significant worsening of symptoms including headache, decreasing mental status or persistent vomiting. Return for significant change of symptoms. Otherwise continue normal medication and activity routine. Follow- up with her doctor in a few days for recheck as needed. Copy Copies To 1: CECILIA JEFF MD, [facility] Dec 03, 2019 23:42 JENNIFER HENDERSON MD Dec 04, 2019 00:23
[2019-12-04 00:39] VITALS: BP 162/83
--- NOTE | 2019-12-04 06:39 | Diagnostic Imaging Report ---
INDICATION: Fall with right hip pain. COMPARISON: None available. TECHNIQUE: AP pelvis with AP and frog-leg views of right hip. FINDINGS: There is slight cortical step-off along the superior lateral margin of the right femoral head neck junction which likely is due to a large osteophyte. However, a minimally impacted subcapital fracture could also give this appearance. Mild degenerative changes of right hip. Diffuse osseous mineralization limits assessment of the sacrum. Additionally, there are extensive overlying bowel gas. No diastases of the symphysis pubis or SI joints. IMPRESSION: 1. No displaced fracture about the right hip. 2. The possibility of a minimally impacted subcapital fracture of the right femoral neck, although this is more likely due to osteophyte formation at the femoral head neck junction. If the patient has inability to bear weight, consider CT or MRI without contrast for further characterization. Dictated by: Dictated on workstation # [id number]
--- NOTE | 2019-12-04 07:00 | Diagnostic Imaging Report ---
PROCEDURE: CT head and CT cervical spine without contrast. TECHNIQUE: Multiple contiguous axial images were obtained through the brain and cervical spine without the use of intravenous contrast. Sagittal and coronal reformations through the cervical spine were then performed. Auto Exposure Controls were utilized during the CT exam to meet ALARA standards for radiation dose reduction. INDICATION: Trauma, fall. COMPARISON: CT head of 05/03/2019. FINDINGS: CT HEAD: A punctate focus of hyperdensity in the high posterior left parietal region measures 4 mm (image 26, series 2) is new since prior examination likely a small focus of intraparenchymal hemorrhage. No intraventricular hemorrhage. No hydrocephalus or midline shift. Global atrophy is present. Chronic microvascular ischemic disease is similar. No acute skull fracture. Paranasal sinuses and mastoid air cells are clear. CT CERVICAL SPINE: No acute fracture or traumatic malalignment in the cervical spine exaggerated lordosis is again noted. Diffuse osseous demineralization. Laminectomies have been performed in the upper thoracic spine. No cervical lymphadenopathy. Lung apices are clear with exception of right apical subpleural scarring. IMPRESSION: 1. Punctate 4 mm focus of acute intraparenchymal hemorrhage in the left parietal lobe. This critical finding was called by the preliminary interpreting radiologist and documented on the preliminary report. 2. No acute fracture or traumatic malalignment cervical spine. 3. Findings are in agreement with the preliminary report. Dictated by: Dictated on workstation # [id number]
== END 2019-12-04 00:39 | disposition home or self-care (01) ==
LOC: EDUNIT# 22:43 → ER 22:45
DX: S06.350A Traumatic hemorrhage of left cerebrum without loss of consciousness, initial encounter (principal); S70.01XA Contusion of right hip, initial encounter; F03.90 Unspecified dementia, unspecified severity, without behavioral disturbance, psychotic disturbance, mood disturbance, and anxiety; R40.2142 Coma scale, eyes open, spontaneous, at arrival to emergency department; R40.2252 Coma scale, best verbal response, oriented, at arrival to emergency department; R40.2362 Coma scale, best motor response, obeys commands, at arrival to emergency department; Z85.3 Personal history of malignant neoplasm of breast; Z85.72 Personal history of non-Hodgkin lymphomas; W19.XXXA Unspecified fall, initial encounter; Y92.129 Unspecified place in nursing home as the place of occurrence of the external cause
CPT/HCPCS: 70450; 72125

== ENCOUNTER → 2020-02-09 | Outpatient (CLI) | payer MEDICARE, MEDICAID ==
[2020-02-09 11:40] LABS: HEMOGLOBIN 12.6 g/dL (11.5-16.0); MEAN PLATELET VOLUME 10.6 fL (9.0-12.2); WHITE BLOOD COUNT 9.4 10^3/uL (4.3-11.0)
[2020-02-09 11:55] LABS: BUN/CREATININE RATIO 25; CALCIUM 9.5 MG/DL (8.5-10.1); CARBON DIOXIDE 28 MMOL/L (21-32); CHLORIDE 102 MMOL/L (98-107); GFR ESTIMATED > 60; GLUCOSE 103 MG/DL (70-105); SODIUM 139 MMOL/L (135-145)
--- NOTE | 2020-02-09 12:17 | Diagnostic Imaging Report ---
INDICATION: Fall. TIME OF EXAM: 11:39 AM FINDINGS: An AP view of the pelvis and 2 views left hip were obtained. A femoral acetabular alignment is normal bilaterally. Joint spaces are well maintained. Femoral head and neck are intact. No fractures are seen. Rami are intact. SI joints and symphysis are non-widened. IMPRESSION: No acute bony abnormality is detected. Dictated by: Dictated on workstation # [id number]
== END ==
LOC: RAD 11:00
PROVIDERS: ATTEND Nurse Practitioner
DX: M25.552 Pain in left hip (principal)
CPT/HCPCS: 36415; 80048; 85027

== ENCOUNTER 2020-04-08 10:45 | Emergency (ER) | payer MEDICARE, MEDICAID ==
[~2020-04-08] VITALS: Ht 160 cm; Wt 58.9 kg
--- NOTE | 2020-04-08 11:48 | ED General ---
General Chief Complaint: Trauma-Non Activation Stated Complaint: FALL Nursing Triage Note: FALL Nursing Sepsis Screen: No Definite Risk Source of Information: EMS Exam Limitations: No Limitations History of Present Illness Date Seen by Provider: Apr 08, 2020 Time Seen by Provider: 11:15 Initial Comments Patient is a 70-year-old female who presents to the emergency department today after a mechanical trip and fall. Patient states that she tripped and fell "in the driveway". Patient's history of present illness, review of systems severely limited by her dementia. With hand over hand exam the patient has no complaints of pain. She does have a cervical collar in place. She has been witnessed to get up and ambulate around the room. Again review of systems severely limited secondary to the patient's dementia Timing/Duration: 1 Hour Allergies and Home Medications Allergies Coded Allergies: codeine (Verified Allergy, Unknown, 04/08/20) meperidine (Verified Allergy, Unknown, 04/08/20) morphine (Verified Allergy, Unknown, 04/08/20) penicillin G (Verified Allergy, Unknown, 04/08/20) sulfamethoxazole (Verified Allergy, Unknown, 04/08/20) tramadol (Verified Allergy, Unknown, 04/08/20) trazodone (Verified Allergy, Unknown, 04/08/20) trimethoprim (Verified Allergy, Unknown, 04/08/20) Patient Home Medication List Home Medication List Reviewed: Yes Review of Systems Review of Systems Constitutional: see HPI Respiratory: no symptoms reported Cardiovascular: no symptoms reported Gastrointestinal: no symptoms reported Review of systems limited secondary to patient's dementia Past Cycjbij-Mhvkoi-Cpyfcw Hx Patient Social History Alcohol Use: Denies Use Recreational Drug Use: No Smoking Status: Unknown if Ever Smoked Recent Foreign Travel: No Contact w/Someone Who Travel: No Recent Infectious Disease Expo: Yes Recent Hopitalizations: No Immunizations Up To Date Tetanus Booster (TDap): Unknown PED Vaccines UTD: Yes Seasonal Allergies Seasonal Allergies: No Past Medical History Surgeries: Yes (HAS MULTIPLE OLD CHEST AND ABDOMINAL SURGICAL SCARS-PT UNABLE TO STATE WHAT) Abdominal, Breast, Neurological, Orthopedic Respiratory: Yes Asthma Cardiac: Yes Hypertension Neurological: Yes Dementia Genitourinary: Yes (URGE INCONTINENCE) Gastrointestinal: Yes Chronic Constipation Musculoskeletal: Yes (CHRONIC RIGHT SHOULDER PAIN/ARTHRITIS; T-SPJNE RESECTION FOR TUMOR) Arthritis Endocrine: No HEENT: No Cancer: Yes Breast, Lymphoma Did You Recieve Any Treatments: Yes What Type of Treatment Did You: Chemotherapy, Radiation, Surgical Intervention Psychosocial: No Integumentary: No Family Medical History ON REVIEW OF OLD RADIOLOGICAL STUDIES, STUDY INFORMATION INCLUDED: HX OF LYMPHOMA, [place] WITH CHEMO AND RADIATION HAD SEVERAL TUMORS REMOVED --IN CHEST--NEAR HEART, SPINAL CORD TUMOR--HAS HAD RESECTION OF MULTIPLE VERTEBRA OF T-SPINE HAS HAD SPLENECTOMY S/P BREAST LUMPECTOMY FOR CANCER PT HAS HISTORY OF BILATERAL LEG WEAKNESS Physical Exam Vital Signs Vital Signs - First Documented 04/08/20 10:48 Pulse 74 Resp 16 B/P (MAP) 152/83 (106) Pulse Ox 94 O2 Delivery Room Air Capillary Refill : Less Than 3 Seconds Height, Weight, BMI Height: '" Weight: lbs. oz. kg; 23.00 BMI Method: General Appearance: No Apparent Distress, WD/WN, Anxious (Mildly anxious getting up out of bed ambulating around the room), Cachetic HEENT: PERRL/EOMI, Normal ENT Inspection Neck: Full Range of Motion (Cervical collar in place. This is removed, no tenderness to palpation over the midline cervical spine. Patient demonstrates range of motion without grimace or complaint of pain), Supple Respiratory: Chest Non Tender, Lungs Clear, Normal Breath Sounds, No Accessory Muscle Use, No Respiratory Distress Cardiovascular: Regular Rate, Rhythm Gastrointestinal: Normal Bowel Sounds, Non Tender, Soft Extremity: Normal Capillary Refill, Normal Inspection (Hand overhand exam over her extremities reveals no complaints of pain. No evidence of abrasions or contusions), Normal Range of Motion, Non Tender Neurologic/Psychiatric: Alert, Normal Mood/Affect, Disoriented (Baseline confusion) Skin: Normal Color, Warm/Dry Progress/Results/Core Measures Suspected Sepsis Recent Fever Within 48 Hours: No Infection Criteria Present: None New/Unexplained Altered Menta: No Sepsis Screen: No Definite Risk SIRS Temperature: Pulse: 74 Respiratory Rate: 16 Blood Pressure 152 /83 Mean: 106 Results/Orders Vital Signs/I&O 04/08/20 10:48 Pulse 74 Resp 16 B/P (MAP) 152/83 (106) Pulse Ox 94 O2 Delivery Room Air Capillary Refill : Less Than 3 Seconds Blood Pressure Mean: 106 Departure Impression Primary Impression: Fall Qualified Codes: W19.XXXA - Unspecified fall, initial encounter Additional Impression: Dementia Qualified Codes: F03.90 - Unspecified dementia without behavioral dist urbance Disposition: 01 HOME, SELF-CARE Condition: Stable Departure-Patient Inst. Decision time for Depature: 11:47 Referrals: CECILIA JEFF MD (PCP/Family) Primary Care Physician Patient Instructions: Preventing Falls Add. Discharge Instructions: Resume prior medications and previous care plan Return to the emergency room for any complaints of pain or new emergent, concerning symptoms. CECILIO VASQUEZ MD Apr 08, 2020 11:48
[2020-04-08 12:07] VITALS: BP 135/82
== END 2020-04-08 12:07 | disposition home or self-care (01) ==
LOC: EDUNIT# 10:45 → ER 10:47
DX: F03.90 Unspecified dementia, unspecified severity, without behavioral disturbance, psychotic disturbance, mood disturbance, and anxiety (principal); F41.9 Anxiety disorder, unspecified; Z85.3 Personal history of malignant neoplasm of breast; Z85.79 Personal history of other malignant neoplasms of lymphoid, hematopoietic and related tissues; Z88.5 Allergy status to narcotic agent; Z88.0 Allergy status to penicillin; Z88.1 Allergy status to other antibiotic agents; Z88.2 Allergy status to sulfonamides; Z88.8 Allergy status to other drugs, medicaments and biological substances; W01.0XXA Fall on same level from slipping, tripping and stumbling without subsequent striking against object, initial encounter
CPT/HCPCS: 99283